=== PATIENT | female | born 1935 | race Caucasian/White ===

== ENCOUNTER 2025-04-15 10:37 | Observation (INO) | payer MEDICARE, SELFPAY ==
[2025-04-15] VITALS (23 sets, daily range): BP systolic 147–196; BP diastolic 51–97; PULSE 59–86; RESP 11–24; TEMP 36.2–36.6; O2SAT 92–100; BMI 26.1
--- NOTE | ~2025-04-15 | XR_ITS ---
EXAMINATION: XR chest 1V portable DATE: 04/15/2025 10:59 INDICATION: Cough and shortness of breath TECHNIQUE: frontal view of the chest was obtained. COMPARISON: None FINDINGS: The lungs are clear with no focal airspace opacities, pulmonary edema, pleural effusion or pneumothor ax. Heart size within normal limits for AP technique. Suture anchors at the right humeral head consis tent with prior rotator cuff repair. IMPRESSION: 1. No acute cardiopulmonary disease. Reviewed, dictated and finalized at location A.
--- NOTE | ~2025-04-15 | CT_ITS ---
EXAMINATION: CTA chest PE protocol DATE: 04/15/2025 12:48 INDICATION: Shortness of breath and 2 days of cough. TECHNIQUE: Computed tomography (CT) pulmonary angiogram of the chest was performed with 100 mL Omnipa que-350 intravenous contrast. Additional 3D reconstructions utilizing coronal maximum intensity proje ction (MIP) were performed. Automated exposure control and iterative reconstruction technique were em ployed. The dose-length product was 279.59 mGy-cm. COMPARISON: None FINDINGS: No pulmonary embolism. Subtle small centrilobular groundglass opacities in the apical and posterior s egments of the right upper lobe and in the lateral segment of the right middle lobe. There is mild di scoid atelectasis at the left lung base of the medial and anterior basilar left lower lobe. Additiona l mild dependent atelectasis in both lungs which accentuates some mild underlying emphysema. There ar e few small calcified nodules in both lungs along with calcified right hilar lymph nodes and scattere d small hepatic and splenic calcific lesions consistent with old granulomatous disease. No pulmonary edema or pleural effusion. Heart size is normal. Atherosclerotic coronary artery calcific location. N o pericardial effusion. Thoracic aorta is normal in caliber with no dissection. No pathologically enl arged thoracic lymphadenopathy. Abdominal wall sutures along the midline of the visualized upper abdo men. Mild right hydronephrosis of indeterminate etiology. Mild to moderate thoracic spondylosis. IMPRESSION: 1. No pulmonary embolism. 2. Patchy lung disease in the right upper and middle lobes consistent with multifocal pneumonia. 3. Mild right hydronephrosis of indeterminate etiology. Correlate with urinalysis and consider furthe r CT imaging of the nonvisualized more caudal abdomen and pelvis. Reviewed, dictated and finalized at location A. IMPRESSION: 1. No pulmonary embolism. 2. Patchy lung disease in the right upper and middle lobes consistent with mult ifocal pneumonia. 3. Mild right hydronephrosis of indeterminate etiology. Correlate with urinalys is and consider further CT imaging of the nonvisualized more caudal abdomen and pelvis.
--- NOTE | 2025-04-15 10:52 | ECG_ITS ---
Test Date: 2025-04-15 11:05:39 Measurements Intervals [place] Rate: 61 P: -4 DE: 128 QRS: -12 QRSD: 94 T: -5 QT: 427 QTc: 431 Interpretive Statements SINUS RHYTHM No previous ECG available for comparison Electronically Signed On 04-15-2025 17:16:18 CDT by Dmitry Leos M.D.
--- NOTE | 2025-04-15 10:53 | ED_ITS ---
HPI - SOB/Dyspnea General Chief Complaint: Shortness of Breath/Dyspnea Stated Complaint: congestion Time Seen by Provider: 04/15/25 10:47 Source: patient Mode of arrival: ambulatory Limitations: no limitations History of Present Illness HPI Narrative: this is an 89-year-old female that recently moved back from [facility] and with her son presents with a 2 day history of shortness of breath with cough congestion with yellow sputum production with no chest pain no nausea vomiting no abdominal pain no fever chills no flank pain no dysuria or hematuria. MD elicited complaint: shortness of breath and cough Onset (ago): day(s) Timing: constant Severity: moderate Exacerbating factors: nothing Relieving factors: nothing Associated symptoms: cough and sputum production Related Data Home Medications ?Medication ?Instructions ?Recorded ?Confirmed ?Last Taken ?Type amlodipine 10 mg-benazepril 20 mg 1 cap PO DAILY 04/15/25 Unknown History capsule atorvastatin 20 mg tablet 20 mg PO DAILY 04/15/25 Unknown History dexlansoprazole 60 mg 60 mg PO DAILY 04/15/25 Unknown History capsule,biphase delayed release diclofenac sodium 1 % topical gel 2 g topical QID 04/15/25 Unknown History folic acid 1 mg tablet 1 mg PO DAILY 04/15/25 Unknown History metoprolol tartrate 100 mg tablet 100 mg PO Q12H 04/15/25 Unknown History nifedipine 30 mg tablet,extended 30 mg PO Q12H 04/15/25 Unknown History release primidone 50 mg tablet 50 mg PO HS 04/15/25 Unknown History venlafaxine 75 mg capsule,extended 75 mg PO DAILY 04/15/25 Unknown History release 24 hr Allergies Allergy/AdvReac Type Severity Reaction Status Date / Time codeine Allergy Unknown Unknown Verified 04/15/25 10:45 Tetanus Vaccines and Toxoid Allergy Unknown Unknown Verified 04/15/25 10:45 Review of Systems 2 Review of Systems: All systems reviewed & are unremarkable except as noted in HPI and below PMFSH Past Medical History Medical History HTN (hypertension) Exam 2 Const: General: healthy appearing, no acute distress and alert Nutritional Appearance: well nourished Orientation/consciousness: patient oriented x3 Limitations: no limitations HENMT: Head: normal to inspection Eyes: Conjunctivae: conjunctivae normal Neck: Neck: normal visual inspection, no lymphadenopathy and no meningeal signs Chest: Chest palpation & inspection: normal inspection of the chest Resp: Effort & Inspection: normal respiratory effort Auscultation: clear to auscultation bilaterally Cardio: Rate: regular rate Rhythm: regular rhythm GI: GI Palp: Yes Soft to palpation Auscultation: normal bowel sounds : General: Yes bladder normal to palpation Skin: General skin exam: normal color Rashes: no rashes Neuro: General: patient oriented x3, moves all extremities, no meningeal signs and no focal motor deficits Extrem: General: normal to inspection, no clubbing, cyanosis or edema and no pedal edema Psych: Mental Status: mental status grossly normal Course Course Emergency Course: patient with some dyspnea had chest x-ray that was unremarkable, D-dimer was mildly elevated at 0.53 CTA showed multi focal pneumonia patient started on ceftriaxone and azithromycin. Patient received a breathing treatment current sats are 97% on room air blood pressure 165 over 98. Patient received 40mg IV Lasix her BNP was 1600 no history of CHF, patient does have a history of hypertension and depression. UA was teen patient current nausea Aczone and azithromycin. His [facility] hospitalist accept the patient for admission. Vital Signs Vital signs: Vital Signs Temperature 36.6 C 04/15/25 10:39 Pulse Rate 68 04/15/25 10:39 Respiratory Rate 20 04/15/25 10:39 Blood Pressure 176/71 H 04/15/25 10:39 Pulse Oximetry 96 04/15/25 10:39 Oxygen Delivery Room Air 04/15/25 10:39 Temperature 36.6 C 04/15/25 10:39 Pulse Rate 64 04/15/25 12:02 Respiratory Rate 18 04/15/25 12:02 Blood Pressure 166/62 H 04/15/25 12:02 Pulse Oximetry 97 04/15/25 12:02 Oxygen Delivery Room Air 04/15/25 10:40 MDM - SOB/Dyspnea Lab Data 04/15/25 11:14 04/15/25 11:14 Labs: Lab Results 04/15/25 04/15/25 Range/Units 10:51 11:14 WBC 6.8 (4.8-10.8) K/mm3 RBC 3.29 L (4.20-5.40) M/mm3 Hgb 10.6 L (11.7-13.8) g/dL Hct 33.7 L (35.0-42.0) % MCV 102.4 H (78.0-102.0) fL MCH 32.2 H (27.0-31.0) pg MCHC 31.5 L (32-36) g/dL RDW 12.3 (11.6-14.4) % Plt Count 240 (150-420) K/mm3 MPV 10.5 (9.2-11.8) fl Immature Gran % (Auto) 0.3 H (0.0-0.0) % Neut % (Auto) 69.8 (50.0-70.0) % Lymph % (Auto) 16.1 L (18.0-42.0) % [place] % (Auto) 12.3 H (2.0-11.0) % Eos % (Auto) 1.2 (1.0-6.0) % Baso % (Auto) 0.3 (0.0-1.0) % Lymph # (Auto) 1.10 (1.10-4.50) K/mm3 [place] # (Auto) 0.84 (0.10-0.90) K/mm3 Eos # (Auto) 0.08 (0.02-0.50) K/mm3 Baso # (Auto) 0.02 (0.00-0.10) K/mm3 Abs Immat Gran (auto) 0.02 H (0.00-0.00) K/mm3 Absolute Neuts (auto) 4.78 (1.70-7.20) K/mm3 Absolute Nucleated RBC 0.00 (0.00-0.00) K/mm3 Nucleated RBC % 0.0 (0-0.0) % PT 10.7 (9.64-11.0) Seconds INR 1.0 APTT 32.9 H (23.9-30.70) Sec D-Dimer 0.53 H* (0.19-0.50) mg/L Sodium 140 (137-145) mmol/L Potassium 3.7 (3.4-5.0) mmol/L Chloride 107 (98-107) mmol/L Carbon Dioxide 27 (22-30) mmol/L Anion Gap 6 (4-12) mmol/L BUN 11 (7-17) mg/dL Creatinine 0.71 (0.7-1.0) mg/dL Estim Creat Clear Calc 44 ml/min Estimated GFR > 60 (59 - ) Glucose 125 H (65-110) mg/dL Calculated Osmolality 290 (285-295) mOsm/kg Lactic Acid 1.5 (0.4-2.0) mmol/L Calcium 8.6 (8.4-10.2) mg/dL Magnesium 2.1 (1.6-2.3) mg/dL Total Bilirubin 0.7 (0.2-1.3) mg/dL AST 34 (14-36) U/L ALT 29 (6-35) U/L Alkaline Phosphatase 64 (38-126) U/L Troponin I < 0.012 (0.000-0.034) ng/mL NT-Pro-B Natriuret Pep 1600 H (19.9-100) pg/mL Total Protein 6.8 (6.3-8.2) g/dL Albumin 4.0 (3.5-5.1) g/dL Influenza A (RT-PCR) Negative (Negative) Influenza B (RT-PCR) Negative (Negative) RSV (RT-PCR) Negative (Negative) SARS-CoV-2 RNA (RT-PCR) Negative (Negative) Critical Care Time Critical Care Time Critical Care Time: No Discharge Plan Discharge Clinical Impression: Pneumonia, Acute exacerbation of CHF (congestive heart failure) Patient Disposition: Acute Care Hospital Condition: Guarded Prognosis Patient Language: Kyrgyz Prescriptions: No Action amlodipine-benazepril 10-20 mg capsule 1 cap PO DAILY atorvastatin 20 mg tablet 20 mg PO DAILY dexlansoprazole 60 mg capsule,biphase delayed releas 60 mg PO DAILY diclofenac sodium 1 % gel 2 g topical QID Rx Instructions: apply to single elbow, wrist or hand; for hand includes palm/fingers/back of hand folic acid 1 mg tablet 1 mg PO DAILY primidone 50 mg tablet 50 mg PO HS venlafaxine 75 mg capsule,extended release 24hr 75 mg PO DAILY metoprolol tartrate 100 mg tablet 100 mg PO Q12H nifedipine 30 mg tablet extended release 30 mg PO Q12H Follow-up/Referrals: UNKNOWN,DOCTOR [Non-Staff] - Time of Disposition: 13:22
--- NOTE | 2025-04-15 11:07 | PC.NURSE ---
Covid culture sent to lab
[2025-04-15 11:28] LABS: Basophils Absolute Auto 0.02 K/mm3 (0.00-0.10); Basophils Percent Auto 0.3 % (0.0-1.0); Eosinophils Absolute Auto 0.08 K/mm3 (0.02-0.50); Eosinophils Percent Auto 1.2 % (1.0-6.0); Hematocrit 33.7 % (35.0-42.0); Hemoglobin 10.6 g/dL (11.7-13.8); Immature Granulocyte Absolute 0.02 K/mm3 (0.00-0.00); Immature Granulocyte Percent A 0.3 % (0.0-0.0); Lymphocytes Percent Auto 16.1 % (18.0-42.0); Mean Corpuscular HGB Conc 31.5 g/dL (32-36); Mean Corpuscular Hemoglobin 32.2 pg (27.0-31.0); Mean Corpuscular Volume 102.4 fL (78.0-102.0); Mean Platelet Volume 10.5 fl (9.2-11.8); Monocytes Absolute Auto 0.84 K/mm3 (0.10-0.90); Monocytes Percent Auto 12.3 % (2.0-11.0); Neutrophils Absolute Auto 4.78 K/mm3 (1.70-7.20); Neutrophils Percent Auto 69.8 % (50.0-70.0); Platelet Count Result 240 K/mm3 (150-420); Red Blood Count 3.29 M/mm3 (4.20-5.40); Red Cell Distribution Width 12.3 % (11.6-14.4); White Blood Count 6.8 K/mm3 (4.8-10.8)
[2025-04-15] MEDS: IPRATROPIUM 0.5 MG/ALBUTEROL SULFATE 2.5 MG AMPUL.NEB 3 ML INHALATION ×2 (11:28→16:34)
--- OUTSIDE RECORDS SUMMARY | 2025-04-15 11:38 | XMS_ITS | Encounter Summary ---
Author Organization [facility] Address [address] [place] [address] Phone Care Team Providers Care Videogame Tester Name Role Phone Susie Jauregui MD Primary Care Provider Encounter Details Date Type Department Care Team (Latest Contact Info) Description 09/28/2020 Transcribe Orders [facility] PERIOP [address] [place] [address] Iam White MD Pre-op testing (Primary Dx) Social History Tobacco Use Types Packs/Day Years Used Date Smoking Tobacco: Never Smokeless Tobacco: Never Alcohol Use Standard Drinks/Week Comments Yes 0 (1 standard drink = 0.6 oz pur e alcohol) 2/year PHQ-2 Answer Date Recorded PHQ-2 Score 0 11/08/2019 Comments No Sex and Gender Information Value Date Recorded Sex Assigned at Not on file Legal Sex Female 11:49 PM CDT Gender Identity Not on file Sexual Orientation Not on file COVID-19 Exposure Response Date Recorded In the last month, have you been in contact with someone who was confirmed or suspected to have Coronavirus / COVID-19? No / Unsure 09/28/2020 8:52 AM EDI PROGRAMMER ANALYST documented as of this encounter Plan of Treatment Not on file documented as of this encounter Results * (ABNORMAL) Urinalysis Microscopic If Indicated (09/29/2020 6:24 AM EDI PROGRAMMER ANALYST) SPECIFIC GRAVITY 1.017 1.003 - 1.035 09/29/2020 6:58 AM EDI PROGRAMMER ANALYST [facility] URINE PH 5.5 5.0 - 8.0 09/29/2020 6:58 AM [facility] WBC ESTERASE 3+(A) Negative 09/29/2020 6:58 AM [facility] NITRITE Positive(A) Negative 09/29/2020 6:58 AM [facility] PROTEIN, RANDOM URINE Trace(A) Negative 09/29/2020 6:58 AM [facility] URINE GLUCOSE, QUAL Negative Negative 09/29/2020 6:58 AM [facility] URINE KETONES Negative Negative 09/29/2020 6:58 AM [facility] UROBILINOGEN <2.0 <2.0 mg/dL 09/29/2020 6:58 AM [facility] URINE BILIRUBIN Negative Negative 0 6:58 AM [facility] URINE BLOOD Trace(A) Negative douglas/ul 09/29/2020 6:58 AM [facility] URINALYSIS COLOR Yellow Yellow 09/29/2020 6:58 AM [facility] URINALYSIS CLARITY Hazy(A) Clear 09/29/2020 6:58 AM [facility] WBC (Urine) 51-150(A) 0-5, Negative /hpf 09/29/2020 6:58 AM [facility] URINE RBC'S 6-10(A) 0-5, Negative, None /hpf 09/29/2020 6:58 AM [facility] BACTERIA, URINE Many(A) None, Absent /hpf 09/29/2020 6:58 AM [facility] URINE MUCOUS Few None, Rare, Few 09/29/2020 6:58 AM [facility] URINE MICRO REQUIRED Yes 09/29/2020 6:58 AM [facility] URINE SQUAMOUS EPITHELIAL CELLS Large amount(A) Negative /HPF 09/29/2020 6:58 AM [facility] URINE HYALINE CASTS 2-5(A) Occasional /LPF 09/29/2020 6:58 AM [facility] DMH RENAL EPI CELLS 09/29/2020 6:58 AM [facility] URINE SPERM 09/29/2020 6:58 AM [facility] URINE TRICHOMONAS 09/29/2020 6:58 AM [facility] URINE YEAST 09/29/2020 6:58 AM EDI PROGRAMMER ANALYST [facility] Urine URINE SPECIMEN COLLECTION, CLEAN CATCH / Unknown Non-Phlebotomy Collection / Unknown 09/29/2020 6:24 AM EDI PROGRAMMER ANALYST 09/29/2020 6:44 AM EDI PROGRAMMER ANALYST Narrative [facility] - 09/29/2020 6:58 AM EDI PROGRAMMER ANALYST Urine culture has been ordered. Iam White MD URINE ORDERABLES Final Resu lt [facility] [address] [place] [address] documented in this encounter Visit Diagnoses Diagnosis Pre-op testing- Primary Preoperative examination, unspecified documented in this encounter Additional Health Concerns Infection Onset Date Last Indicated Resolved Time PUI 05/07/2021 05/07/2021 05/07/2021 9:27 PM CDT Assessment Noted Time PHQ-9 Depression Total Score: 0 09/28/20 20 9:00 AM EDI PROGRAMMER ANALYST documented as of this encounter Care Teams Videogame Tester Relationship Specialty Start Date End Date Susie Jauregui MD [address] [place] [address] PCP - General Geriatric Medicine 08/26/18 documented as of this encounter
--- OUTSIDE RECORDS SUMMARY | 2025-04-15 11:38 | XMS_ITS | Encounter Summary ---
Author Organization [facility] Address [address] [place] [address] Phone Care Team Providers Care Necktie Turner Name Role Phone Susie Jauregui MD Primary Care Provider Encounter Details Date Type Department Care Team (Late st Contact Info) Description 05/15/2021 Lab Requisition [facility] Laboratory Services [address] [place] [address] Justin Carlson MD [address] [facility] [address] [place] [address] Fracture of unspecified part of neck of right femur, initial encounter for closed fracture (HCC) Social History Tobacco Use Types Packs/Day Years Used Date Smoking Tobacco: Never Smokeless Tobacco: Never Alcohol Use Standard Drinks/Week Comments Yes 0 (1 standard drink = 0.6 oz pur e alcohol) 2/year PHQ-2 Answer Date Recorded Total Score - Questions 1-9 0 04/23 Comments No Sex and Gender Information Value Date Recorded Sex Assigned at Not on file Legal Sex Female 11:49 PM CDT Gender Identity Not on file Sexual Orientation Not on file COVID-19 Exposure Response Date Recorded In the last month, have you been in contact with someone who was confirmed or suspected to have Coronavirus / COVID-19? No / Unsure 05/10/2021 8:04 AM CDT documented as of this encounter Plan of Treatment Not on file documented as of this encounter Procedures Procedure Name Priority Date/Time Associated Diagnosis Comments CBC WITH AUTO DIFFERENTIAL Routine 05/15/2021 6:20 AM CDT Fracture of unspecified part of neck of right femur, initial encounter for closed fracture (HCC) COMPLETE BLOOD COUNT (CBC) WITH DIFF Routine 05/15/2021 6:20 AM CDT Fracture of unspecified part of neck of right femur, initial encounter for closed fracture (HCC) BASIC METABOLIC PANEL W/ CALCIUM TOTAL Routine 05/15/2021 6:20 AM CDT Fracture of unspecified part of neck of right femur, initial encounter for closed fracture (HCC) ALBUMIN Routine 05/15/2021 6:20 AM CDT Fracture of unspecified part of neck of right femur, initial encounter for closed fracture (HCC) ADJUSTED CALCIUM*[facility] Routine 05/15/2021 6:20 AM CDT Fracture of unspecified part of neck of right femur, initial encounter for closed fracture (HCC) documented in this encounter Results * (ABNORMAL) ALBUMIN (05/15/2021 6:20 AM CDT) ALBUMIN 2.7(L) 3.4 - 4.8 g/dL 05/15/2021 8:31 AM CDT [facility] Blood Venipuncture / Unknown 05/15/2021 6:20 AM CDT 05/15/2021 7:11 AM CDT us Justin Carlson MD CHEMISTRY ORDERABLES Final Re sult [place] [id number] [place] [address] * ADJUSTED CALCIUM*[facility] (05/15/2021 6:20 AM CDT) ADJUSTED CALCIUM 9.2 8.8 - 10.0 mg/dL 05/15/2021 8:32 AM CDT [facility] Blood Venipuncture / Unknown 05/15/2021 6:20 AM CDT 05/15/2021 7:11 AM CDT us Justin Carlson MD CHEMISTRY ORDERABLES Final Re sult [facility] [address] [place] [address] * (ABNORMAL) CBC WITH AUTO DIFFERENTIAL (05/15/2021 6:20 AM CDT) WBC 6.12 3.90 - 11.00 10(3)/mcL 05/15/2021 8:[address] [facility] RBC 3.04(L) 3.80 - 5.20 10(6)/mcL 05/15/2021 8:[address] [facility] HEMOGLOBIN (HGB) 9.4(L) 11.7 - 16.0 g/dL 05/15/2021 8:[address] [facility] HEMATOCRIT (HCT) 30.2(L) 34.9 - 46.9 % 05/15/2021 8:[address] [facility] MCV 99.3 80.0 - 100.0 fL 05/15/2021 8:[address] [facility] MCH 30.9 26.5 - 33.9 pg 05/15/2021 8:[address] [facility] MCHC 31.1(L) 31.5 - 36.0 g/dL 05/15/2021 8:[address] [facility] PLATELET COUNT 362 140 - 445 10(3)/mcL 05/15/2021 8:[address] [facility] MPV 9.7 >=0.0 fL 05/15/2021 8:[address] [facility] RDW 13.9 12.0 - 15.0 % 05/15/2021 8:[address] [facility] NEUTROPHILS 65.7 % 05/15/2021 8:[address] [facility] LYMPHOCYTES 20.4 % 05/15/2021 8:[address] [facility] MONOCYTES 10.5 % 05/15/2021 8:[address] [facility] EOSINOPHILS 1.3 % 05/15/2021 8:[address] [facility] IMMATURE GRANULOCYTE % 1.1 % 05/15/2021 8:[address] [facility] BASOPHILS 1.0 % 05/15/2021 8:[address] [facility] ABSOLUTE NEUTROPHILS 4.02 1.40 - 7.30 10(3)/[facility] 05/15/2021 8:[address] [facility] ABSOLUTE LYMPHOCYTES 1.25(L) 1.30 - 2.90 10(3)/[facility] 05/15/2021 8:[address] [facility] ABSOLUTE MONOCYTES 0.64 0.10 - 0.80 10(3)/[facility] 05/15/2021 8:[address] [facility] ABSOLUTE EOSINOPHIL 0.08 0.00 - 0.30 10(3)/[facility] 05/15/2021 8:[address] [facility] ABSOLUTE BASOPHILS 0.06 0.00 - 0.10 10(3)/[facility] 05/15/2021 8:[address] [facility] ABSOLUTE IMMATURE GRANULOCYTE 0.07 0.00 - 0.10 10 (3) mcL. 05/15/2021 8:[address] [facility] NRBC PER 100 WBC 0.0 0.0 - 0.0 % 05/15/2021 8:[address] [facility] ABSOLUTE NRBC 0.00 10 (3) mcL. 05/15/2021 8:[address] [facility] Blood Venipuncture / Unknown 05/15/2021 6:20 AM CDT 05/15/2021 7:11 AM CDT us Justin Carlson MD HEMATOLOGY ORDERABLES Final R esult [facility] [address] [place] [address] * (ABNORMAL) BASIC METABOLIC PANEL W/ CALCIUM TOTAL (05/15/2021 6:20 AM CDT) SODIUM 140 133 - 145 mmol/L 05/15/2021 8:[address] [facility] POTASSIUM 4.0 3.5 - 5.1 mmol/L 05/15/2021 8:[address] [facility] CHLORIDE 105 96 - 108 mmol/L 05/15/2021 8:[address] [facility] CO2, VENOUS 29 21 - 32 mmol/L 05/15/2021 8:[address] [facility] ANION GAP 10.0 10.0 - 20.0 mmol/L 05/15/2021 8:[address] [facility] GLUCOSE 91 83 - 110 mg/dL 05/15/2021 8:[address] [facility] BUN 11 6 - 19 mg/dL 05/15/2021 8:[address] [facility] CREATININE, BLOOD 0.60 0.40 - 1.10 mg/dL 05/15/2021 8:[address] [facility] BUN/CREATININE RATIO 18 12 - 20 ratio 05/15/2021 8:[address] [facility] CALCIUM 8.2(L) 8.8 - 10.0 mg/dL 05/15/2021 8:[address] [facility] Comment:Calcium low. Correct ed calcium to follow. Blood Venipuncture / Unknown 05/15/2021 6:20 AM CDT 05/15/2021 7:11 AM CDT us Justin Carlson MD CHEMISTRY ORDERABLES Final Re sult [facility] [address] [place] [id number] documented in this encounter Visit Diagnoses Diagnosis Fracture of unspecified part of neck of right femur, initial encounter for closed fracture documented in this encounter Additional Health Concerns Assessment Noted Time PHQ-9 Depression Total Score: 0 05/08/20 21 1:15 AM CDT documented as of this encounter Care Teams Necktie Turner Relationship Specialty Start Date End Date Susie Jauregui MD [address] [place] [address] PCP - General Geriatric Medicine 08/26/18 documented as of this encounter
--- OUTSIDE RECORDS SUMMARY | 2025-04-15 11:38 | XMS_ITS | Encounter Summary ---
Author Organization [facility] Address [address] [place] [address] Phone Care Team Providers Care Assembler Fishing Floats Name Role Phone Susie Jauregui MD Primary Care Provider Encounter Details Date Type Department Care Team (Late st Contact Info) Description 06/18/[address] [facility] Laboratory Services [address] [place] [address] Abelino David MD [address] [place], [place] [id number] Essential (primary) hypertension; Urinary tract infection, site not specified Social History Tobacco Use Types Packs/Day Years Used Date Smoking Tobacco: Never Smokeless Tobacco: Never Alcohol Use Standard Drinks/Week Comments Yes 0 (1 standard drink = 0.6 oz pur e alcohol) 2/year PHQ-2 Answer Date Recorded Total Score - Questions 1-9 0 05/23 Comments No Sex and Gender Information Value Date Recorded Sex Assigned at Not on file Legal Sex Female 11:49 PM CDT Gender Identity Not on file Sexual Orientation Not on file COVID-19 Exposure Response Date Recorded In the last month, have you been in contact with someone who was confirmed or suspected to have Coronavirus / COVID-19? No / Unsure 06/05/2021 9:07 AM CDT documented as of this encounter Plan of Treatment Not on file documented as of this encounter Procedures Procedure Name Priority Date/Time Associated Diagnosis Comments CRP, DMH/SHS Routine 06/18/2021 6:41 AM CDT Essential (primary) hypertension Urinary tract infection, site not specified CBC WITH AUTO DIFFERENTIAL Routine 06/18/2021 6:41 AM CDT Essential (primary) hypertension Urinary tract infection, site not specified CMP (COMPREHENSIVE METABOLIC PANEL) Routine 06/18/2021 6:41 AM CDT Essential (primary) hypertension Urinary tract infection, site not specified COMPLETE BLOOD COUNT (CBC) WITH DIFF Routine 06/18/2021 6:41 AM CDT Essential (primary) hypertension Urinary tract infection, site not specified documented in this encounter Results * (ABNORMAL) CBC WITH AUTO DIFFERENTIAL (06/18/2021 6:41 AM CDT) WBC 4.46 3.90 - 11.00 10(3)/mcL 06/18/2021 9:09 AM [facility] RBC 3.32(L) 3.80 - 5.20 10(6)/mcL 06/18/2021 9:09 AM [facility] HEMOGLOBIN (HGB) 10.0(L) 11.7 - 16.0 g/dL 06/18/2021 9:09 AM [facility] HEMATOCRIT (HCT) 32.9(L) 34.9 - 46.9 % 06/18/2021 9:09 AM [facility] MCV 99.1 80.0 - 100.0 fL 06/18/2021 9:09 AM [facility] MCH 30.1 26.5 - 33.9 pg 06/18/2021 9:09 AM [facility] MCHC 30.4(L) 31.5 - 36.0 g/dL 06/18/2021 9:09 AM [facility] PLATELET COUNT 311 140 - 445 10(3)/mcL 06/18/2021 9:09 AM [facility] MPV 9.5 >=0.0 fL 06/18/2021 9:09 AM [facility] RDW 14.2 12.0 - 15.0 % 06/18/2021 9:09 AM [facility] NEUTROPHILS 52.7 % 06/18/2021 9:09 AM [facility] LYMPHOCYTES 34.1 % 06/18/2021 9:09 AM [facility] MONOCYTES 10.8 % 06/18/2021 9:09 AM [facility] EOSINOPHILS 1.3 % 06/18/2021 9:09 AM [facility] IMMATURE GRANULOCYTE % 0.2 % 06/18/2021 9:09 AM [facility] BASOPHILS 0.9 % 06/18/2021 9:09 AM [facility] ABSOLUTE NEUTROPHILS 2.35 1.40 - 7.30 10(3)/[facility] 06/18/2021 9:09 AM [facility] ABSOLUTE LYMPHOCYTES 1.52 1.30 - 2.90 10(3)/mcL 06/18/2021 9:09 AM [facility] ABSOLUTE MONOCYTES 0.48 0.10 - 0.80 10(3)/[facility] 06/18/2021 9:09 AM [facility] ABSOLUTE EOSINOPHIL 0.06 0.00 - 0.30 10(3)/[facility] 06/18/2021 9:09 AM [facility] ABSOLUTE BASOPHILS 0.04 0.00 - 0.10 10(3)/mcL 06/18/2021 9:09 AM [facility] ABSOLUTE IMMATURE GRANULOCYTE 0.01 0.00 - 0.10 10 (3) mcL. 06/18/2021 9:09 AM [facility] NRBC PER 100 WBC 0.0 0.0 - 0.0 % 06/18/2021 9:09 AM [facility] ABSOLUTE NRBC 0.00 10 (3) mcL. 06/18/2021 9:09 AM [facility] Blood Venipuncture / Unknown 06/18/2021 6:41 AM CDT 06/18/2021 8:04 AM CDT us Abelino David MD HEMATOLOGY ORDERABLES Final Re sult [facility] [address] [place] [address] * (ABNORMAL) CMP (COMPREHENSIVE METABOLIC PANEL) (06/18/2021 6:41 AM CDT) SODIUM 142 133 - 145 mmol/L 06/18/2021 9:25 AM [facility] POTASSIUM 4.1 3.5 - 5.1 mmol/L 06/18/2021 9:25 AM [facility] CHLORIDE 106 96 - 108 mmol/L 06/18/2021 9:25 AM [facility] CO2, VENOUS 30 21 - 32 mmol/L 06/18/2021 9:25 AM [facility] ANION GAP 10.1 10.0 - 20.0 mmol/L 06/18/2021 9:25 AM [facility] GLUCOSE 97 83 - 110 mg/dL 06/18/2021 9:25 AM [facility] BUN 11 6 - 19 mg/dL 06/18/2021 9:25 AM [facility] CREATININE, BLOOD 0.70 0.40 - 1.10 mg/dL 06/18/2021 9:25 AM [facility] BUN/CREATININE RATIO 16 12 - 20 ratio 06/18/2021 9:25 AM [facility] TOTAL PROTEIN 6.0 6.0 - 8.2 g/dL 06/18/2021 9:25 AM [facility] ALBUMIN 3.3(L) 3.4 - 4.8 g/dL 06/18/2021 9:25 AM [facility] CALCIUM 8.8 8.8 - 10.0 mg/dL 06/18/2021 9:25 AM [facility] T BILI 0.3 0.0 - 1.0 mg/dL 06/18/2021 9:25 AM [facility] SGOT (AST) 16 0 - 37 U/L 06/18/2021 9:25 AM [facility] SGPT (ALT) 22 12 - 45 U/L 06/18/2021 9:25 AM [facility] ALKALINE PHOSPHATASE 64 39 - 117 U/L 06/18/2021 9:25 AM [facility] GFR, EST. NONAFRICAN >60 06/18/2021 9:25 AM [facility] Comment: Reference interval for MDRD GFR: GFR >=60: Satisfactory kidney function GFR <60: Chronic kidney disease GFR <15: Kidney failure Estimated GFR may be less reliable in patients >70yr, women, patients with serious comorbid conditions, or patients with extremes of body size, muscle mass, or nutritional status. Revised 02/16/08 (National Kidney Disease Education Program) GFR, EST. >60 >=60 021 9:25 AM [facility] Comment: Reference interval for MDRD GFR: GFR >=60: Satisfactory kidney function GFR <60: Chronic kidney disease GFR <15: Kidney failure Estimated GFR may be less reliable in patients >70yr, women, patients with serious comorbid conditions, or patients with extremes of body size, muscle mass, or nutritional status. Revised 02/16/08 (National Kidney Disease Education Program) Blood Venipuncture / Unknown 06/18/2021 6:41 AM CDT 06/18/2021 8:04 AM CDT [facility] - 06/18/2021 9:25 AM T Venipuncture should occur prior to sulfasalazine and/or sulfapyridine administration due to the potential for falsely depressed results for ALT and AST. Glucose can be falsely depressed after administration of sulfasalazine, and falsely elevated with administration of sulfapyridine. us Abelino David MD CHEMISTRY ORDERABLES Final Res ult [facility] [address] [place] [address] * CRP, DMH (06/18/2021 6:41 AM CDT) C-REACITVE PROTEIN <2.9 0.0 - 5.0 mg/L 06/18/2021 9:25 AM [facility] Blood Venipuncture / Unknown 06/18/2021 6:41 AM CDT 06/18/2021 8:04 AM CDT us Abelino David MD CHEMISTRY ORDERABLES Final Res ult [facility] [address] [place] [address] documented in this encounter Visit Diagnoses Diagnosis Essential (primary) hypertension Unspecified essential hypertension Urinary tract infection, site not specified documented in this encounter Additional Health Concerns Assessment Noted Time PHQ-9 Depression Total Score: 0 06/05/20 21 9:00 AM CDT documented as of this encounter Care Teams Assembler Fishing Floats Relationship Specialty Start Date End Date Susie Jauregui MD [address] [place] [address] PCP - General Geriatric Medicine 08/26/18 documented as of this encounter
--- OUTSIDE RECORDS SUMMARY | 2025-04-15 11:38 | XMS_ITS | Clinical Summary ---
Author Organization [facility] Address [address] [place] [address] Phone Care Team Providers Care System Support Developer Name Role Phone Susie Jauregui MD Primary Care Provider Allergies Active Allergy Reactions Criticality Noted Date Comments Codeine Vomiting Medium 09/01/2018 Tetanus Toxoid Nausea Medium 09/03/2018 Medications Magnesium Oxide 400 MG Capsule Take 1 Cap by mouth daily. Active alendronate (FOSAMAX) 35 MG TabletIndicatio ns:Osteoporosis Take 70 mg by mouth every 7 days. Active amLODIPine-tulio zepril (LOTREL) 5-10 MG Capsule Take 1 Cap by mouth 2 times daily. Active atorvastatin (LIPITOR) 20 MG Tablet Take 20 mg by mouth daily. Active Calcium Carbonate-Vitam in D (CALCIUM 500 + D PO) Take 1 Tab by mouth 2 times daily. Active Dexlansoprazole 60 MG CAPSULE DELAYED RELEASE Take 1 Cap by mouth daily (with breakfast). Active Multiple Vitamins-Minera ls (MULTIVITAMIN PO) Take 1 Tab by mouth daily. Active venlafaxine (EFFEXOR-XR) 75 MG CAPSULE SR 24 HR Take 75 mg by mouth daily. Active primidone (MYSOLINE) 50 MG Tablet 3 tabs at hs 0 Active Diclofenac Sodium (VOLTAREN) 1 % Gel Apply 4 g 4 times daily. 9 Active metoprolol tartrate (LOPRESSOR) 50 MG Tablet Take 75 mg by mouth 2 times daily. 1 Active sulfaSALAzine (AZULFIDINE) 500 MG Tablet Take 1,500 mg by mouth 2 times daily. Active aspirin 81 MG Chewable Tablet Take 1 Tablet by mouth 2 times daily. Continue twice a day for 35 days for blood clot prevention 0 Active Additional Information Patient taking differently:81 mg OralDAILY, (No instructions reported), Reported on 02/21/2022 NIFEdipine CR (PROCARDIA-XL) 30 MG TABLET SR 24 HR Take 30 mg by mouth in the morning and at bedtime. 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 Frequent falls 07/24/2021 Closed fracture of right hip with routine healin g 05/08/2021 Left knee pain 09/28/2020 Closed displaced comminuted fracture of left pat eren 09/28/2020 De Quervain's tenosynovitis 08/30/2018 Family History Medical History Relation Name Comments No Known Problems Father Heart Attack Mother Relation Name Status Comments Father Mother Social History Tobacco Use Types Packs/Day Years Used Date Smoking Tobacco: Never Smokeless Tobacco: Never Tobacco Cessation:Counseling Given: No Alcohol Use Standard Drinks/Week Comments Yes 0 (1 standard drink = 0.6 oz pur e alcohol) 2/year PHQ-2 Answer Date Recorded Total Score - Questions 1-9 0 11/2021 Comments No Sex and Gender Information Value Date Recorded Sex Assigned at Not on file Legal Sex Female 11:49 PM CDT Gender Identity Not on file Sexual Orientation Not on file Last Filed Vital Signs Vital Sign Reading Time Taken Comments Blood Pressure 169/74 11/21/2022 12:50 PM DIRECTOR PROCESS ENGINEERING Pulse 73 11/21/2022 12:50 PM DIRECTOR PROCESS ENGINEERING Temperature 36.3 C (97.3 F) 11/21/2022 12:50 PM DIRECTOR PROCESS ENGINEERING Respiratory Rate 16 11/21/2022 12:50 PM DIRECTOR PROCESS ENGINEERING Oxygen Saturation 93% 11/21/2022 12:50 PM DIRECTOR PROCESS ENGINEERING Inhaled Oxygen Concentration - - Weight 61.2 kg (135 lb) 11/21/2022 9:00 AM DIRECTOR PROCESS ENGINEERING Height 157.5 cm (5' 2) 11/21/2022 9:00 AM DIRECTOR PROCESS ENGINEERING Body Mass Index 24.69 11/21/2022 9:00 AM DIRECTOR PROCESS ENGINEERING Plan of Treatment Health Maintenance Due Date Last Done Comments DEXA Bone Density 1935 Hepatitis C Virus (HCV) Screening 1935 TdaP Immunization 1935 Respiratory Syncytial Virus (RSV) Immunization (Adult) (1 - 1-dose 75+ series) 2012 Influenza Immunization (#1) 07/24/202411/23, 08/23/2022, 09/03/2020, Additional history exists SARS-COV-2 Immunization ( season) 2024 01/07/2022, 01/07/2022, 03/06/2021, Additional history exists Zoster Immunization Completed 09/11/2018, 05/11/2018, 10/22/2012 Pneumococcal Immunization (50+ years) Completed 09/03/2020, 08/22/2015, 06/10/2004 Pneumococcal Immunization Combined Discontinued 09/03/2020, 08/22/2015, 06/10/2004 Hepatitis B Immunization Aged Out No longer eligible based on patient's age to complete this topic Meningococcal Immunization (ACWY) Aged Out No longer eligible based on patient's age to complete this topic Rotavirus Immunization Aged Out No lo nger eligible based on patient's age to complete this topic Medical Devices Implanted Type Area Night Auditor Device Identifier Shelf Expiration Date Model / Serial / Lot Cement Biomet - [id number] Implanted:Qty: 1 on 05/08/2021 by Iam White MD at [facility] IMPLANT Right: Hip [employer] 07/23/2025 [id number] / / [id number] Cement [employer] - [id number] Implanted:Qty: 1 on 05/08/2021 by Iam White MD at [facility] IMPLANT Right: Hip [employer] 08/22/2025 [id number] / / [id number] [facility] Distal Spacer [id number] - [id number] Implanted:Qty: 1 on 05/08/2021 by Iam White MD at [facility] IMPLANT Right: Hip SEBASTIAN VALERIA 04/17/2026 [id number] / / [id number] Univ Cement Restrict [id number] - [id number] Implanted:Qty: 1 on 05/08/2021 by Iam White MD at [facility] IMPLANT Right: Hip [employer] VALER[employer] 01/11/2026 [id number] / / [id number] Uhr Bipolar [id number] - [id number] Implanted:Qty: 1 on 05/08/2021 by Iam White MD at [facility] IMPLANT Right: Hip SEBASTIAN VALERIA 01/28/2026 [id number] / / [id number] 1.8mm Threaded Im Nail Implanted:Qty: 1 on 11/21/2022 by Clarence Cadet DO at [facility] IMPLANT Right: Hand [employer] IMN1.8-35T / / UNKNOWN 1.8mm Threaded Im Nail Implanted:Qty: 1 on 11/21/2022 by Clarence Cadet DO at [facility] IMPLANT Right: Hand [employer] IMN1.8-30T / / UNKNOWN 2.1mm Threaded Im Nail Implanted:Qty: 1 on 11/21/2022 by Clarence Cadet DO at [facility] IMPLANT Right: Hand [employer] IMN2.1-40T / / UNKNOWN Accolade C 127 Degree Cemented Hip Stem Implanted:Qty: 1 on 05/08/2021 by Iam White MD at [facility] Right: Hip 10/21/2023 [id number] / / [id number] [place] [employer] V40 Femoral Head Implanted:Qty: 1 on 05/08/2021 by Iam White MD at [facility] Right: Hip 03/11/2026 [id number] / / [id number] Explanted Type Area Night Auditor Device Identifier Shelf Expiration Date Model / Serial / Lot Cristopher Arnold Threaded - [id number] Explanted:Qty: 1 on 05/08/2021 by Iam White MD at [facility] IMPLANT Right: Hip [employer] [id number] / / UNK 0.9mm K-Wire Explanted:Qty: 2 on 11/21/2022 at [facility] IMPLANT Right: Hand [employer] WIRE-0.9/120 / / UNKNOWN Insurance MEDICARE [facility] [employer] [facility] [place] [id number] [employer] GENERIC Care Teams System Support Developer Relationship Specialty Start Date End Date Susie Jauregui MD [address] [place] [address] PCP - General Geriatric Medicine 08/26/18
[2025-04-15 11:39] LABS: Alanine Aminotransferase 29 U/L (6-35); Alkaline Phosphatase 64 U/L (38-126); Anion Gap 6 mmol/L (4-12); Aspartate Amino Transferase 34 U/L (14-36); Bilirubin,Total 0.7 mg/dL (0.2-1.3); Blood Urea Nitrogen 11 mg/dL (7-17); Calcium 8.6 mg/dL (8.4-10.2); Carbon Dioxide 27 mmol/L (22-30); Chloride 107 mmol/L (98-107); Estimated CRCL calculation 44 ml/min; Estimated Glomerular Filt Rate > 60; Glucose 125 mg/dL (65-110); Lactic Acid Reflex 1.5 mmol/L (0.4-2.0); Magnesium 2.1 mg/dL (1.6-2.3); Osmolality Calculated 290 mOsm/kg (285-295); Potassium 3.7 mmol/L (3.4-5.0); Sodium 140 mmol/L (137-145); Total Protein 6.8 g/dL (6.3-8.2)
[2025-04-15 11:51] LABS: NT Pro B Type Natriuretic Pept 1600 pg/mL (19.9-100); Troponin I < 0.012 ng/mL (0.000-0.034)
[2025-04-15 12:05] LABS: Influenza A QL RT-PCR Negative (Negative); Influenza B QL RT-PCR Negative (Negative); RSV RNA, RT-PCR Negative (Negative); SARS-CoV-2 RNA PCR Negative (Negative)
[2025-04-15 12:05] LABS: Prothrombin Time 10.7 Seconds (9.64-11.0)
[2025-04-15 12:14] LABS: Partial Thromboplastin Time 32.9 Sec (23.9-30.70)
[2025-04-15 12:20] LABS: D Dimer 0.53 mg/L (0.19-0.50)
[2025-04-15] MEDS: FUROSEMIDE INJ 40 MG/4 ML VIAL IV PUSH (12:21)
[2025-04-15 13:31] LABS: Add Urine Microscopic? NO; Appearance Urine Clear (Clear); Bilirubin Urine Negative (Negative); Blood Urine Negative (Negative); Color Urine Light Yellow (Yellow); Glucose Urine UA Negative (Negative); Ketones Urine Negative (Negative); Leukocyte Esterase Ur Negative LEU/UL (Negative); Nitrate Urine Negative (Negative); Protein Urine Negative (Negative); Specific Grav Ur <= 1.005 (1.010-1.020); Urobilinogen Urine 0.2 mg/dL (0.2-1.0); pH Urine 6.5 (5.0-8.0)
--- NOTE | 2025-04-15 13:31 | PC.NURSE ---
Pt and grandson POC discussed for admit. Pt is weak on her feet w/ movement. She will be 23 hr obs admit to Rm 208, spoke w/ 2nd charge DAVE Mcnamara.
[2025-04-15] MEDS: AZITHROMYCIN 500 MG/NS 250 ML 500 MG/250 ML BAG 250 MG IVPB (14:40)
--- NOTE | 2025-04-15 15:20 | PC.NURSE ---
Patient arrived from ED on stretcher. Patient able to transfer from stretcher to bed with 2 assist. Patient admitted to room 208 for observation. Patient and family educated on use of call light, bed controls, visiting hours, living will preparation, use of our rapid response system and safety precautions. Patient and family voiced understanding. Blue folder given to patient and family.
--- NOTE | 2025-04-15 18:11 | PC.NURSE ---
Nurse gave patient a PRN nebulizer treatment and patient did not tolerate it well. Patient was anxious, shaky and felt awful after treatment. Nurse encouraged patient to eat dinner and drink plenty of water. Patient did those things and is feeling much better now.
[2025-04-15] MEDS: METOPROLOL TARTRATE 50 MG TAB 100 MG PO (20:33)
[2025-04-15] MEDS: PRIMIDONE 50 MG TABLET PO (20:37)
[2025-04-15] MEDS: guaiFENesin 12 HR 600 MG TABCR 1200 MG PO (20:38)
[2025-04-15] MEDS: DICLOFENAC SODIUM 1% 100 GM GEL (*BKC) TOPICAL (20:38)
[2025-04-16] VITALS: BP 145/59; PULSE 78; RESP 18; TEMP 37.1; O2SAT 93
[2025-04-16 08:00] VITALS: BP 188/80; PULSE 72; RESP 16; TEMP 36.1; O2SAT 90
[2025-04-16] MEDS: ENOXAPARIN 40 MG/0.4 ML SYRINGE SUB-Q (08:13)
[2025-04-16] MEDS: VENLAFAXINE HCL XR 75 MG CAP.ER.24H PO (08:14)
[2025-04-16] MEDS: ATORVASTATIN 10 MG TABLET 20 MG PO (08:14)
[2025-04-16] MEDS: AZITHROMYCIN 250 MG TABLET 500 MG PO (08:15)
[2025-04-16 08:16] VITALS: PULSE 72
[2025-04-16] MEDS: MAGNESIUM OXIDE 400 MG TABLET PO (08:16)
[2025-04-16] MEDS: METOPROLOL TARTRATE 50 MG TAB 100 MG PO ×2 (08:16→20:55)
[2025-04-16] MEDS: FOLIC ACID 1 MG TABLET PO (08:17)
[2025-04-16] MEDS: guaiFENesin 12 HR 600 MG TABCR 1200 MG PO ×2 (08:17→20:59)
[2025-04-16 08:43] LABS: Basophils Absolute Auto 0.02 K/mm3 (0.00-0.10); Basophils Percent Auto 0.3 % (0.0-1.0); Eosinophils Absolute Auto 0.12 K/mm3 (0.02-0.50); Eosinophils Percent Auto 1.9 % (1.0-6.0); Hematocrit 37.4 % (35.0-42.0); Hemoglobin 11.7 g/dL (11.7-13.8); Immature Granulocyte Absolute 0.02 K/mm3 (0.00-0.00); Immature Granulocyte Percent A 0.3 % (0.0-0.0); Lymphocytes Absolute Auto 1.52 K/mm3 (1.10-4.50); Lymphocytes Percent Auto 23.9 % (18.0-42.0); Mean Corpuscular HGB Conc 31.3 g/dL (32-36); Mean Corpuscular Hemoglobin 32.1 pg (27.0-31.0); Mean Corpuscular Volume 102.5 fL (78.0-102.0); Mean Platelet Volume 10.3 fl (9.2-11.8); Monocytes Absolute Auto 0.59 K/mm3 (0.10-0.90); Monocytes Percent Auto 9.3 % (2.0-11.0); Neutrophils Absolute Auto 4.09 K/mm3 (1.70-7.20); Neutrophils Percent Auto 64.3 % (50.0-70.0); Platelet Count Result 291 K/mm3 (150-420); Red Blood Count 3.65 M/mm3 (4.20-5.40); Red Cell Distribution Width 12.3 % (11.6-14.4); White Blood Count 6.4 K/mm3 (4.8-10.8)
[2025-04-16 09:00] LABS: Alanine Aminotransferase 29 U/L (6-35); Albumin Level 4.3 g/dL (3.5-5.1); Alkaline Phosphatase 73 U/L (38-126); Anion Gap 5 mmol/L (4-12); Aspartate Amino Transferase 33 U/L (14-36); Bilirubin,Total 0.6 mg/dL (0.2-1.3); Blood Urea Nitrogen 9 mg/dL (7-17); Calcium 8.7 mg/dL (8.4-10.2); Carbon Dioxide 32 mmol/L (22-30); Chloride 103 mmol/L (98-107); Estimated CRCL calculation 40 ml/min; Estimated Glomerular Filt Rate > 60; Glucose 91 mg/dL (65-110); Magnesium 2.3 mg/dL (1.6-2.3); Osmolality Calculated 288 mOsm/kg (285-295); Sodium 140 mmol/L (137-145); Total Protein 7.4 g/dL (6.3-8.2)
[2025-04-16 09:01] LABS: Potassium 3.6 mmol/L (3.4-5.0)
--- NOTE | 2025-04-16 09:32 | PC.NURSE ---
Called to inform [place], Grandchild of the need to bring in Sulfasalazine to facility. No answer and unable to leave VM.
[2025-04-16] MEDS: NIFEdipine 30 MG TAB.ER.24 PO ×2 (09:33→20:59)
--- NOTE | 2025-04-16 11:35 | P.HP_ITS ---
H&P: HPI History of Present Illness Date/Time: 04/16/25 11:35 Chief Complaint: Cough/Congestion Narrative: Patient is an 89-year-old female who presented to the emergency department with complaints of ongoing cough congestion with mild shortness of breath for the past 2 days. patient recently moved back in with her son from [facility] and began to have worsening cough congestion and she further notice some green sputum production. Patient reports past medical history of hypertension, HLD, OA. in the emergency department patient had mildly elevated D-dimer and BNP is elevated at 1600 but no previous history of CHF at that time ED did give single dose of IV Lasix and patient was sent for CTA to rule out PE CTA was negative for PE however did show patchy lung disease in the right upper and middle lobes consistent with multifocal pneumonia. patient did have normal WBC and labs for otherwise unremarkable vital stable. Patient was seen this following day reported feeling better remained on room air, denied shortness breath or chest pain but still had significant productive cough. patient denied any nausea vomiting fever chills. Review of Systems Review of Systems: All systems reviewed & are unremarkable except as noted in HPI and below PMFSH Past Medical History Medical History HTN (hypertension) Social History Social History Smoking status: Never smoker Second hand tobacco smoke exposure: Yes Alcohol intake: never Substance use: never Substance use type: does not use Do You Feel Safe in your Home?: Yes Lack of Transportation: No Lack of Food: Never True Current Housing: I Have Housing Concerned About Future Housing: No Difficulty Paying Gas/Electric Bills: No Difficulty Paying for Meds: No Currently Unemployed: No Education: High School Diploma/GED Difficulty w/ Childcare or Family Care: No Spiritual care concerns: No Meds Home Medications and Allergies Home Medications ?Medication ?Instructions ?Recorded ?Confirmed ?Type amlodipine 10 mg-benazepril 20 mg 1 cap PO DAILY 04/15/25 04/15/25 History capsule atorvastatin 20 mg tablet 20 mg PO DAILY 04/15/25 04/15/25 History dexlansoprazole 60 mg 60 mg PO DAILY 04/15/25 04/15/25 History capsule,biphase delayed release diclofenac sodium 1 % topical gel 2 g topical QID 04/15/25 04/15/25 History folic acid 1 mg tablet 1 mg PO DAILY 04/15/25 04/15/25 History magnesium oxide 250 mg PO DAILY 04/15/25 04/15/25 History metoprolol tartrate 100 mg tablet 100 mg PO Q12H 04/15/25 04/15/25 History nifedipine 30 mg tablet,extended 30 mg PO Q12H 04/15/25 04/15/25 History release primidone 50 mg tablet 50 mg PO HS 04/15/25 04/15/25 History sulfasalazine 500 mg tablet 1,500 mg PO BID 04/15/25 04/15/25 History venlafaxine 75 mg capsule,extended 75 mg PO DAILY 04/15/25 04/15/25 History release 24 hr Allergies Allergy/AdvReac Type Severity Reaction Status Date / Time codeine Allergy Unknown Unknown Verified 04/15/25 10:45 Tetanus Vaccines and Toxoid Allergy Unknown Unknown Verified 04/15/25 10:45 Vital Signs Vital Signs - 24 hr 04/15/25 11:45 04/15/25 11:45 04/15/25 12:00 Temperature Pulse Rate 64 59 L 62 Respiratory Rate 20 15 12 Blood Pressure Pulse Oximetry 95 92 100 Oxygen Delivery Oxygen Flow Rate 04/15/25 12:02 04/15/25 14:04 04/15/25 14:14 Temperature 97.9 F Pulse Rate 64 82 61 Respiratory Rate 18 20 16 Blood Pressure 166/62 H 168/78 H Pulse Oximetry 97 95 94 Oxygen Delivery Room Air Room Air Oxygen Flow Rate 04/15/25 15:16 04/15/25 16:25 04/15/25 16:34 Temperature 97.1 F L 97.1 F L Pulse Rate 61 70 70 Respiratory Rate 16 18 18 Blood Pressure 162/61 H 180/51 H Pulse Oximetry 94 94 94 Oxygen Delivery Room Air Room Air Oxygen Flow Rate 0 04/15/25 17:13 04/15/25 20:00 04/15/25 20:33 Temperature Pulse Rate 86 67 73 Respiratory Rate 20 20 Blood Pressure Pulse Oximetry 98 98 Oxygen Delivery Room Air Oxygen Flow Rate 0 04/16/25 00:00 04/16/25 08:00 04/16/25 08:16 Temperature 98.7 F 96.9 F L Pulse Rate 78 72 72 Respiratory Rate 18 16 Blood Pressure 145/59 H 188/80 H Pulse Oximetry 93 90 Oxygen Delivery Room Air Room Air Oxygen Flow Rate Exam Const: General: comfortable and no acute distress HENMT: Ears: TM's normal bilaterally Face/Nose/Sinus: Normal nares present Mouth: Yes moist mucous membranes Eyes: General: appearance normal, both eyes and all related structures Sclera: sclerae normal Pupils: Equal, round and reactive pupils present Neck: Neck: supple and no JVD Resp: Effort & Inspection: normal respiratory effort Auscultation: diminished lung sounds on the right Other: Productive cough Cardio: Rate: regular rate Rhythm: regular rhythm GI: GI Palp: Yes Soft to palpation Auscultation: normal bowel sounds Skin: General skin exam: normal color and no rashes or lesions noted Wounds: no wounds Neuro: General: gait normal and deep tendon reflexes 2+ bilaterally Speech: normal speech Motor exam (neuro): 5/5 motor strength present throughout Sensory Exam: normal sensation Extrem: General: normal to inspection Psych: Mental Status: mental status grossly normal Affect: normal affect H&P: Results Labs Labs: Short CBC 04/16/25 Range/Units 08:14 WBC 6.4 (4.8-10.8) K/mm3 Hgb 11.7 (11.7-13.8) g/dL Hct 37.4 (35.0-42.0) % Plt Count 291 (150-420) K/mm3 BMP 04/15/25 04/16/25 11:14 08:14 Sodium 140 140 Potassium 3.7 3.6 Chloride 107 103 Carbon Dioxide 27 32 H BUN 11 9 Creatinine 0.71 0.68 L Glucose 125 H 91 Calcium 8.6 8.7 Cardiac Enzymes 04/15/25 Range/Units 11:14 Troponin I < 0.012 (0.000-0.034) ng/mL Liver Function 04/15/25 04/16/25 Range/Units 11:14 08:14 Total Bilirubin 0.7 0.6 (0.2-1.3) mg/dL AST 34 33 (14-36) U/L ALT 29 29 (6-35) U/L Alkaline Phosphatase 64 73 (38-126) U/L Albumin 4.0 4.3 (3.5-5.1) g/dL Urine 04/15/25 Range/Units 13:20 Urine Color Light yellow (Yellow) Urine Appearance Clear (Clear) Urine pH 6.5 (5.0-8.0) Ur Specific [place] <= 1.005 L (1.010-1.020) Urine Protein Negative (Negative) Urine Glucose (UA) Negative (Negative) Assessment and Plan Assessment and plan (1) Pneumonia: Qualifiers: Laterality: bilateral Lung location: unspecified part of lung Pneumonia type: due to unspecified organism Qualified Code(s): J18.9 - Pneumonia, unspecified organism Code(s): J18.9 - Pneumonia, unspecified organism Status: Acute Assessment and Plan: patient presented with cough and congestion CTA showing right middle and upper lobe pneumonia. BNP was elevated but no evidence of CHF exacerbation and no history of heart failure * Bronchodilators attempt but patient did not like the feel so discontinued * blood cultures NGTD * incentive spirometry while awake. * influenza/COVID/RSV negative * ceftriaxone and azithromycin * Mucinex * supplemental oxygen therapy to maintain oxygen 92% (2) HTN (hypertension): Code(s): I10 - Essential (primary) hypertension Status: Acute Assessment and Plan: patient's BP was elevated this a.m. however she had not received her blood pressure medication continue to monitor and adjust as needed * continue metoprolol and nifedipine * BP per unit protocol (3) Hyperlipidemia: Code(s): E78.5 - Hyperlipidemia, unspecified Status: Acute Assessment and Plan: * continued atorvastatin Plan Code status: Full code per patient DVT prophylaxis: Lovenox Stress ulcer prophylaxis: NA PT/OT notes: NA Disposition: patient continues admission for pneumonia will continue with current treatment possible discharge home tomorrow if events overnight Quality VTE Prophylaxis VTE prophylaxis: pharmacologic ordered -Patient's previous records reviewed on admission -ER notes reviewed in detail on admission -discussed all findings and current treatment plan with patient/Family/POA -Consultations reviewed for recommendations -Patient's disposition for safe discharge discussed with patient case coordinator Dictation performed by [employer] direct speech recognition software, therefore breaker hand variants and typographical errors may occur. Hospitalist MIPS Advance Care Plan I have confirmed that the patient's Advanced Care Plan is present, code status is documented, or surrogate decision maker is listed in patient medical record.: Yes Medication Reconciliation I have utilized all available resources to obtain, update and review the patients current medications (includes all prescriptions, OTC, herbals, cannabis, and nutritional supplements).: Yes The patient is not eligible for med reconciliation; the patient is in a emergent medical situation where delaying treatment would jeopardize the patients health.: No
--- NOTE | 2025-04-16 11:59 | PHAR ---
Drug Name:?sulfaSALAzine Color:?Yellow Shape:?[place] Imprint:??TV 7U Imprint Code Description:?Debossed TV score 7U on one side and plain on the other side Form:?Oral Tablet
--- NOTE | 2025-04-16 12:26 | PC.NURSE ---
Spoke with Candice Pharmacist re: Sulfasalazine 1500. Candice informs this medication should be in [facility] main pharmacy. Med not located in main pharmacy per 2 nursing staff. Request for FIELD SUPERINTENDENT to change order to NF and able to use home med. Called [facility] left message for Candice informing medication order we spoke about earlier would be changed per FIELD SUPERINTENDENT. Requesting if she had any other questions to call [facility] 2nd floor.
[2025-04-16] MEDS: DICLOFENAC SODIUM 1% 100 GM GEL (*BKC) TOPICAL ×2 (13:20→17:13)
[2025-04-16] MEDS: SULFASALAZINE 500 MG PO ×2 (13:27→17:14)
[2025-04-16] MEDS: [UNRECOGNIZED DRUG - OTHER] PO ×2 (13:27→17:14)
[2025-04-16 13:44] LABS: Hemoglobin A1C < 4.7 % (<5.7)
--- NOTE | 2025-04-16 15:04 | PC.NURSE ---
Patient transferred to [facility] on 03/16/25 at 1433 and again today 04/16/25 at 1346. Informed Carley in patient access who informs we will go with the most recent until more information comes on this situation.
[2025-04-16 16:00] VITALS: BP 174/68; PULSE 63; RESP 16; TEMP 35.8; O2SAT 96
[2025-04-16 20:00] VITALS: PULSE 70; RESP 16; O2SAT 96
[2025-04-16 20:55] VITALS: PULSE 66
[2025-04-16] MEDS: PRIMIDONE 50 MG TABLET PO (20:59)
[2025-04-17] VITALS: BP 173/76; PULSE 64; RESP 16; TEMP 36.3; O2SAT 93
[2025-04-17 07:09] LABS: Basophils Absolute Auto 0.04 K/mm3 (0.00-0.10); Basophils Percent Auto 0.7 % (0.0-1.0); Eosinophils Absolute Auto 0.15 K/mm3 (0.02-0.50); Eosinophils Percent Auto 2.7 % (1.0-6.0); Hematocrit 33.7 % (35.0-42.0); Hemoglobin 10.8 g/dL (11.7-13.8); Immature Granulocyte Absolute 0.02 K/mm3 (0.00-0.00); Immature Granulocyte Percent A 0.4 % (0.0-0.0); Lymphocytes Absolute Auto 1.45 K/mm3 (1.10-4.50); Lymphocytes Percent Auto 26.5 % (18.0-42.0); Mean Corpuscular Hemoglobin 32.5 pg (27.0-31.0); Mean Corpuscular Volume 101.5 fL (78.0-102.0); Mean Platelet Volume 9.6 fl (9.2-11.8); Monocytes Absolute Auto 0.66 K/mm3 (0.10-0.90); Monocytes Percent Auto 12.1 % (2.0-11.0); Neutrophils Absolute Auto 3.15 K/mm3 (1.70-7.20); Neutrophils Percent Auto 57.6 % (50.0-70.0); Platelet Count Result 261 K/mm3 (150-420); Red Blood Count 3.32 M/mm3 (4.20-5.40); Red Cell Distribution Width 12.1 % (11.6-14.4); White Blood Count 5.5 K/mm3 (4.8-10.8)
[2025-04-17 07:23] LABS: Alanine Aminotransferase 22 U/L (6-35); Albumin Level 3.8 g/dL (3.5-5.1); Alkaline Phosphatase 69 U/L (38-126); Anion Gap 4 mmol/L (4-12); Aspartate Amino Transferase 29 U/L (14-36); Bilirubin,Total 0.5 mg/dL (0.2-1.3); Blood Urea Nitrogen 11 mg/dL (7-17); Calcium 8.7 mg/dL (8.4-10.2); Carbon Dioxide 29 mmol/L (22-30); Chloride 106 mmol/L (98-107); Estimated CRCL calculation 39 ml/min; Estimated Glomerular Filt Rate > 60; Glucose 94 mg/dL (65-110); Magnesium 2.2 mg/dL (1.6-2.3); Osmolality Calculated 287 mOsm/kg (285-295); Potassium 3.9 mmol/L (3.4-5.0); Sodium 139 mmol/L (137-145); Total Protein 6.7 g/dL (6.3-8.2)
[2025-04-17 07:57] VITALS: BP 190/79; PULSE 70; RESP 16; TEMP 35.9; O2SAT 93
[2025-04-17] MEDS: ENOXAPARIN 40 MG/0.4 ML SYRINGE SUB-Q (08:30)
[2025-04-17] MEDS: DICLOFENAC SODIUM 1% 100 GM GEL (*BKC) TOPICAL (08:31)
[2025-04-17] MEDS: SULFASALAZINE 500 MG PO (08:32)
[2025-04-17] MEDS: [UNRECOGNIZED DRUG - OTHER] PO (08:32)
[2025-04-17 08:33] VITALS: PULSE 70
[2025-04-17] MEDS: ATORVASTATIN 10 MG TABLET 20 MG PO (08:33)
[2025-04-17] MEDS: METOPROLOL TARTRATE 50 MG TAB 100 MG PO (08:33)
[2025-04-17] MEDS: VENLAFAXINE HCL XR 75 MG CAP.ER.24H PO (08:34)
[2025-04-17] MEDS: guaiFENesin 12 HR 600 MG TABCR 1200 MG PO (08:34)
[2025-04-17] MEDS: AZITHROMYCIN 250 MG TABLET 500 MG PO (08:34)
[2025-04-17] MEDS: NIFEdipine 30 MG TAB.ER.24 60 MG PO (08:35)
[2025-04-17] MEDS: FOLIC ACID 1 MG TABLET PO (08:35)
[2025-04-17] MEDS: MAGNESIUM OXIDE 400 MG TABLET PO (08:35)
--- NOTE | 2025-04-17 09:28 | PC.NURSE ---
Patient's BP down to 166/78
--- NOTE | 2025-04-17 09:37 | P.DS_ITS ---
DS: Admitting Diagnosis Discharge Date 04/17/2025 Admitting Diagnosis Pneumonia DS: Discharge Diagnosis Discharge Diagnosis (1) Pneumonia: Qualifiers: Laterality: bilateral Lung location: unspecified part of lung Pneumonia type: due to unspecified organism Qualified Code(s): J18.9 - Pneumonia, unspecified organism Code(s): J18.9 - Pneumonia, unspecified organism Status: Acute (2) HTN (hypertension): Code(s): I10 - Essential (primary) hypertension Status: Acute (3) Hyperlipidemia: Code(s): E78.5 - Hyperlipidemia, unspecified Status: Acute Plan Disposition: Discharged to home DS: Summary Hospital Course Reason for hospitalization: Pneumonia Hospital Course: Patient was a 89-year-old female who presented to the emergency department with complaints of ongoing cough congestion with mild shortness of breath for the past 2 days. patient recently moved back in with her son from [facility] and began to have worsening cough congestion and she further notice some green sputum production. Patient reports past medical history of hypertension, HLD, OA. in the emergency department patient had mildly elevated D-dimer and BNP is elevated at 1600 but no previous history of CHF at that time ED did give single dose of IV Lasix and patient was sent for CTA to rule out PE CTA was negative for PE however did show patchy lung disease in the right upper and middle lobes consistent with multifocal pneumonia. patient did have normal WBC and labs for otherwise unremarkable vital stable. Patient was seen this following day reported feeling better remained on room air, denied shortness breath or chest pain but still had significant productive cough. patient denied any nausea vomiting fever chills. Patient was continued on IV ceftriaxone and oral azithromycin initially had given her DuoNebs but she did not tolerate well so discontinued but continued with Mucinex and incentive spirometer. patient with overall improvement to symptoms still mild cough but remained afebrile and normal WBC blood cultures with no growth to date. patient felt close to baseline except for mild cough she was discharged home with family on oral Augmentin and azithromycin I encouraged her to continue with incentive spirometer and supportive care at home prescribed Mucinex but could use OTC for a mucolytic. patient did have some hypertension during the course of her hospitalization at which time I increased her nifedipine 30 mg to 60 mg b.i.d. with plans to follow up with her primary care physician after discharge. CTA chest showed smell right hydronephrosis however patient's UA was negative patient asymptomatic. patient with no difficulty with urination or retention. Patient acknowledged and agreed with discharge plan. Status at Discharge Functional status at discharge: independent ambulation Overall status at discharge: patient is progressing back to baseline Time Spent with Patient Time attestation: Total time spent providing and/or coordinating discharge services: Time spent: Greater than 30 minutes Exam Const: General: comfortable and no acute distress HENMT: Ears: TM's normal bilaterally Face/Nose/Sinus: Normal nares present Mouth: Yes moist mucous membranes Eyes: General: appearance normal, both eyes and all related structures Sclera: sclerae normal Pupils: Equal, round and reactive pupils present Neck: Neck: supple and no JVD Resp: Effort & Inspection: normal respiratory effort Auscultation: diminished lung sounds on the right Other: Productive cough Cardio: Rate: regular rate Rhythm: regular rhythm GI: Auscultation: normal bowel sounds Skin: General skin exam: normal color and no rashes or lesions noted Wounds: no wounds Neuro: General: gait normal and deep tendon reflexes 2+ bilaterally Cranial nerves: Yes Equal, round and reactive pupils present Speech: normal speech Motor exam (neuro): 5/5 motor strength present throughout Sensory Exam: normal sensation Extrem: General: normal to inspection Psych: Mental Status: mental status grossly normal Affect: normal affect DS: Data Data Completed and Pending Labs on day of discharge: Labs from last 24 hours 04/17/25 04/16/25 06:53 08:14 WBC 5.5 RBC 3.32 L Hgb 10.8 L Hct 33.7 L MCV 101.5 MCH 32.5 H MCHC 32.0 RDW 12.1 Plt Count 261 MPV 9.6 Immature Gran % (Auto) 0.4 H Neut % (Auto) 57.6 Lymph % (Auto) 26.5 [place] % (Auto) 12.1 H Eos % (Auto) 2.7 Baso % (Auto) 0.7 Lymph # (Auto) 1.45 [place] # (Auto) 0.66 Eos # (Auto) 0.15 Baso # (Auto) 0.04 Abs Immat Gran (auto) 0.02 H Absolute Neuts (auto) 3.15 Absolute Nucleated RBC 0.00 Nucleated RBC % 0.0 Sodium 139 Potassium 3.9 Chloride 106 Carbon Dioxide 29 Anion Gap 4 BUN 11 Creatinine 0.70 Estim Creat Clear Calc 39 Estimated GFR > 60 Glucose 94 Hemoglobin A1c < 4.7 Calculated Osmolality 287 Calcium 8.7 Magnesium 2.2 Total Bilirubin 0.5 AST 29 ALT 22 Alkaline Phosphatase 69 Total Protein 6.7 Albumin 3.8 Preliminary micro results at discharge 04/15/25 11:14 Blood Culture - Preliminary Blood 04/15/25 11:00 Blood Culture - Preliminary Blood Imaging Radiologist's impression: EXAMINATION: CTA chest PE protocol DATE: 04/15/2025 12:48 INDICATION: Shortness of breath and 2 days of cough. TECHNIQUE: Computed tomography (CT) pulmonary angiogram of the chest was performed with 100 mL Omnipaque-350 intravenous contrast. Additional 3D reconstructions utilizing coronal maximum intensity projection (MIP) were performed. Automated exposure control and iterative reconstruction technique were employed. The dose-length product was 279.59 mGy-cm. COMPARISON: None FINDINGS: No pulmonary embolism. Subtle small centrilobular groundglass opacities in the apical and posterior segments of the right upper lobe and in the lateral segment of the right middle lobe. There is mild discoid atelectasis at the left lung base of the medial and anterior basilar left lower lobe. Additional mild dependent atelectasis in both lungs which accentuates some mild underlying emphysema. There are few small calcified nodules in both lungs along with calcified right hilar lymph nodes and scattered small hepatic and splenic calcific lesions consistent with old granulomatous disease. No pulmonary edema or pleural effusion. Heart size is normal. Atherosclerotic coronary artery calcific location. No pericardial effusion. Thoracic aorta is normal in caliber with no dissection. No pathologically enlarged thoracic lymphadenopathy. Abdominal wall sutures along the midline of the visualized upper abdomen. Mild right hydronephrosis of indeterminate etiology. Mild to moderate thoracic spondylosis. IMPRESSION: 1. No pulmonary embolism. 2. Patchy lung disease in the right upper and middle lobes consistent with multifocal pneumonia. 3. Mild right hydronephrosis of indeterminate etiology. Correlate with urinalysis and consider further CT imaging of the nonvisualized more caudal abdomen and pelvis. Discharge Plan Discharge Attending physician on discharge: Shree Aldana Consulting providers: Naima Hester Discharging Clinician: Naima Hester Anticipated Discharge Date/Time: 04/17/25 09:26 Patient Disposition: Home Activity: may shower and as tolerated Diet: heart healthy Discharge Instructions: 1). Pneumonia: * I have prescribed oral antibiotics please take if indicated incomplete even if feeling better * continue with incentive spirometer attempt to complete once an hour * I have also prescribed guaifenesin which can also be bought OTC under Mucinex this will help thin secretions * I encourage oral hydration as tolerated * you may also use acetaminophen as needed for mild fevers or pain 2). hypertension * your blood pressure remained elevated during admission at this time I have increased her nifedipine from 30 mg to 60 mg * please follow-up with your primary care physician How can you care for yourself at home? ? Keep track of any new symptoms or changes in your symptoms. ? Rest until you feel better. ? Be safe with medicines. Take your medicines exactly as prescribed. Call your doctor if you think you are having a problem with your medicine. ? Do not drive after taking a prescription pain medicine. ? Ensure to follow-up with primary care physician as indicated and provide updated medication list provided to you at discharge. When should you call for help? Call 911 anytime you think you may need emergency care. For example, call if: ? You passed out (lost consciousness). Call your doctor now or seek immediate medical care if: ? You have new symptoms like fever, difficulty breathing, Chest pain, vomiting, or rash. ? You have new or different pain. ? You are confused and are having trouble thinking clearly. ? Your symptoms are getting worse. Watch closely for changes in your health, and be sure to contact your doctor if: ? You do not get better as expected. Patient Instructions: Antibiotic Form, Community Acquired Pneumonia (DC) Patient Language: Citizen Of [place] Stand Alone Forms: General Discharge Information Follow-up/Referrals: Juventino,Susie Patel [Other] - 2 weeks Discharge Medications: New azithromycin [Zithromax] 250 mg Tablet 500 mg PO DAILY Qty: 6 0RF guaifenesin [Mucus Relief ER] 600 mg Tablet Extended Release 12hr 1,200 mg PO Q12HR Qty: 20 0RF nifedipine [Procardia XL] 60 mg tablet extended release 24hr 60 mg PO DAILY Qty: 60 0RF amoxicillin-pot clavulanate 875-125 mg tablet 1 tablet PO Q12H Qty: 8 0RF Continued atorvastatin 20 mg tablet 20 mg PO DAILY dexlansoprazole 60 mg capsule,biphase delayed releas 60 mg PO DAILY diclofenac sodium 1 % gel 2 g topical QID Rx Instructions: apply to single elbow, wrist or hand; for hand includes palm/fingers/back of hand folic acid 1 mg tablet 1 mg PO DAILY primidone 50 mg tablet 50 mg PO HS venlafaxine 75 mg capsule,extended release 24hr 75 mg PO DAILY metoprolol tartrate 100 mg tablet 100 mg PO Q12H sulfasalazine 500 mg tablet 1,500 mg PO BID magnesium oxide 250 mg magnesium tablet 250 mg PO DAILY Discontinued amlodipine-benazepril 10-20 mg capsule 1 cap PO DAILY nifedipine 30 mg tablet extended release 30 mg PO Q12H Date of admission: 04/15/25 13:23 Primary Care Provider: JuventinoSusie Admitting Provider: Shree Aldana Attending physician on admission: Shree Aldana Condition: Stable Quality VTE Prophylaxis VTE prophylaxis: pharmacologic ordered -Patient's previous records reviewed on admission -ER notes reviewed in detail on admission -discussed all findings and current treatment plan with patient/Family/POA -Consultations reviewed for recommendations -Patient's disposition for safe discharge discussed with pillowcase turner Dictation performed by [employer] direct speech recognition software, therefore device test engineer variants and typographical errors may occur. Hospitalist LASHANDA Heart Failure (Exclusion) Patient has history of Heart Transplant or Left Ventricular Assistive Device?: No IF YES, STOP HERE Heart Failure (Qualifier) Patient has current or prior documentation of LVEF less than or equal to 40%, or mod/servere depressed LVSF?: No IF NO, STOP HERE
--- NOTE | 2025-04-17 10:30 | PC.NURSE ---
Patient given a shower prior to discharge.
--- NOTE | 2025-04-17 10:55 | PC.NURSE ---
Discharge instructions given to patient and patient's grandson. Both voiced understanding. Patient belongings and home medications sent home with patient. Patient left unit in w/c accompanied by her grandson and her nurse. Patient left hospital grounds in privately owned vehicle.
--- NOTE | 2025-04-17 17:32 | PC.NURSE ---
michael called and procardia dose verified with physical medicine physician and she is to take 60mg twice a day. called him back and reverifed this with him. she wanted 60mg twice daily and she wrote daily but did give 60 tabs enough for 30 days til they can follow up with primary care. michael vocalizes an understanding
--- NOTE | 2025-04-18 09:02 | PC.NURSE ---
Spoke with Marsha for discharge call back. She informs she has not questions with discharge instruction at this time.
== END 2025-04-17 10:55 | disposition home or self-care (01) ==
LOC: CHSED 13:22 → CHS2ND 13:34
PROVIDERS: Nurse Practitioner Family; Admitting Provider Internal Medicine; Emergency Provider Emergency Medicine; Visit Provider Internal Medicine
DX: J18.9 Pneumonia, unspecified organism (principal); I10 Essential (primary) hypertension; E78.5 Hyperlipidemia, unspecified; M19.90 Unspecified osteoarthritis, unspecified site; Z20.822 Contact with and (suspected) exposure to COVID-19; Z79.899 Other long term (current) drug therapy
CPT/HCPCS: 36415; 71045; 71275; 80053; 81003; 83036; 83605; 83735; 83880; 84484; 85025; 85380; 85610; 85730; 87040; 87637; 93005; 94640; 96365; 96372; 96375; 99285; A9270; G0378; J0456; J0696; J1650; J1938; Q9967

== ENCOUNTER 2025-09-04 20:31 | Emergency (ER) | payer MEDICARE, OTHER, SELFPAY ==
--- NOTE | ~2025-09-04 | CT_ITS ---
CT CERVICAL SPINE WITHOUT CONTRAST HISTORY: fall/PATIENT DENIES ANY PAIN OR COMPLAINTS COMPARISON: None TECHNIQUE: Axial images of the cervical spine were obtained. Multiplanar reconstruction in the coronal, sagittal and axial reformats to evaluate for cervical fracture. FINDINGS: The images demonstrate no acute fracture or paravertebral soft tissue swelling. Marked degenerative changes with disc narrowing. And facet joint arthropathy . The visualized aspect of the upper lungs are clear. IMPRESSION: No acute fracture or subluxation. Moderate degenerative changes. All CT scans at this facility are performed using low dose modulation techniques as appropriate to perform exam including the following: automated exposure control; adjustment of the mA and/or kV according to patient size (this includes techniques or standardized protocols for targeted exams where does is matched to indication/reason for exam; i.e. extremities or head); use of iterative reconstruction technique). Reviewed, dictated and finalized at location S. IMPRESSION: No acute fracture or subluxation. Moderate degenerative changes. All CT scans at this facility are performed using low dose modulation techniqu es as appropriate to perform exam including the following: automated exposure c ontrol; adjustment of the mA and/or kV according to patient size (this includes techniques or standardized protocols for targeted exams where does is matched to indication/reason for exam; i.e. extremities or head); use of iterative julee nstruction technique).
--- NOTE | ~2025-09-04 | CT_ITS ---
CT brain wo con HISTORY:fall/PATIENT DENIES ANY PAIN OR COMPLAINTS COMPARISON: None. TECHNIQUE: Axial images were obtained of the head without intravenous contrast. FINDINGS: No acute intracranial hemorrhage, mass effect or midline shift. No extra-axial fluid collections. There is generalized atrophy and chronic white matter microangiopathic changes.The calvarium is intact. Visualized paranasal sinuses and mastoid air cells are clear. IMPRESSION: No acute intracranial hemorrhage or extra axial fluid collections. Generalized atrophy and chronic white matter microangiopathic changes. All CT scans at this facility are performed using low dose modulation techniques as appropriate to perform exam including the following: automated exposure control; use of iterative reconstruction technique; adjustment of the mA and/or kV according to patient size (this includes techniques or standardized protocols for targeted exams where dose is matched to indication/reason for exam). Reviewed, dictated and finalized at location S. IMPRESSION: No acute intracranial hemorrhage or extra axial fluid collections. Generalized atrophy and chronic white matter microangiopathic changes. All CT scans at this facility are performed using low dose modulation techniqu es as appropriate to perform exam including the following: automated exposure c ontrol; use of iterative reconstruction technique; adjustment of the mA and/or kV according to patient size (this includes techniques or standardized protocol s for targeted exams where dose is matched to indication/reason for exam).
--- NOTE | ~2025-09-04 | XR_ITS ---
XR chest 1V portable INDICATION:fall/PATIENT DENIES ANY PAIN OR COMPLAINTS . REFERENCE: None FINDINGS: A single AP of the chest demonstrates normal heart size. The lungs are clear. There is no evidence of pneumothorax or pleural effusion. IMPRESSION: No acute pulmonary findings. Reviewed, dictated and finalized at location S.
[2025-09-04 20:32] VITALS: BP 148/99; PULSE 56; RESP 18; TEMP 36; O2SAT 97
--- NOTE | 2025-09-04 20:54 | ECG_ITS ---
Test Date: 2025-09-04 21:18:34 Measurements Intervals [place] Rate: 52 P: 17 CA: 153 QRS: -1 QRSD: 104 T: -30 QT: 458 QTc: 427 Interpretive Statements SINUS BRADYCARDIA T-WAVE ABNORMALITY IN ANTEROLAT/INF LEADS- CONSIDER ISCHEMIA BASELINE ARTIFACT- I, II, III, AVR, AVL, AVF, V1-V6 ABNORMAL ECG Compared to ECG 04/15/2025 11:05:39 HEART RATE HAS DECREASED T-wave abnormality now present Possible ischemia now present Electronically Signed On 09-05-2025 05:42:56 CDT by Thomas Coates D.O.
--- NOTE | 2025-09-04 20:56 | ED.FALL ---
HPI - Fall General Chief Complaint: Fall Stated Complaint: fall Time Seen by Provider: 09/04/25 20:54 Source: patient and family Mode of arrival: ambulatory Limitations: clinical condition History of Present Illness HPI Narrative: Patient is a 89-year-old female with a fall today and also in the past week. She hit her head. She was brought in for further evaluation at this time. Family says this is similar to a prior episode when she had a UTI. MD complaint: fall Onset (ago): day(s) (One and a few days prior) Fall from: standing Fall witnessed: no Place fall occurred: home Loss of consciousness: unsure Prolonged down time: no Symptoms prior to fall: none Context: tripped/slipped Location of injury: head Severity: moderate Severity scale (1-10): 4 Quality: dull Associated symptoms (after fall): denies and confusion Related Data Home Medications ?Medication ?Instructions ?Recorded ?Confirmed ?Last Taken ?Type atorvastatin 20 mg tablet 20 mg PO DAILY 04/15/25 04/15/25 04/15/25 08:00 History 20 mg dexlansoprazole 60 mg 60 mg PO DAILY 04/15/25 04/15/25 04/15/25 08:00 History capsule,biphase delayed release 60 mg diclofenac sodium 1 % topical gel 2 g topical QID 04/15/25 04/15/25 04/15/25 08:00 History 2 g folic acid 1 mg tablet 1 mg PO DAILY 04/15/25 04/15/25 04/15/25 08:00 History 1 mg magnesium oxide 250 mg PO DAILY 04/15/25 04/15/25 04/14/25 19:00 History 250 mg metoprolol tartrate 100 mg tablet 100 mg PO Q12H 04/15/25 04/15/25 04/15/25 08:00 History 100 mg primidone 50 mg tablet 50 mg PO HS 04/15/25 04/15/25 04/14/25 19:00 History 50 mg sulfasalazine 500 mg tablet 1,500 mg PO BID 04/15/25 04/15/25 04/15/25 08:00 History 1,500 mg venlafaxine 75 mg capsule,extended 75 mg PO DAILY 04/15/25 04/15/25 04/15/25 08:00 History release 24 hr 75 mg Allergies Allergy/AdvReac Type Severity Reaction Status Date / Time codeine Allergy Unknown Unknown Verified 09/04/25 20:34 Tetanus Vaccines and Toxoid Allergy Unknown Unknown Verified 09/04/25 20:34 Review of Systems Review of Systems: All systems reviewed & are unremarkable except as noted in HPI and below Constitutional: Constitutional: Reports no additional constitutional complaints Eyes: Eyes: Reports no additional eye complaints ENT: Reports system reviewed and no additional complaints, except as documented Cardiovascular: Cardiovascular: Reports no additional cardiovascular complaints Respiratory: Respiratory: Reports no additional respiratory complaints Gastrointestinal: Gastrointestinal: Reports no additional gastrointestinal complaints Genitourinary: Genitourinary: Reports no additional female genitourinary complaints Musculoskeletal: Musculoskeletal: Reports no additional musculoskeletal complaints Integumentary/Breasts: Skin/Breast: Reports system reviewed and no additional complaints, except as docu Neurologic: Reports system reviewed and no additional complaints, except as documented Psychiatric: Psychiatric: Reports no additional psychiatric complaints Endocrine: Endocrine: Reports no additional endocrine complaints Hematologic/Lymphatic: Hematologic/Lymphatic: Reports no additional hematologic/lymphatic complaints Allergic/Immunologic: Allergic/Immunologic: Reports no additional allergic/immunologic complaints PMFSH Past Medical History Medical History HTN (hypertension) Social History Social History Smoking status: Never smoker Second hand tobacco smoke exposure: Yes Alcohol intake: never Substance use: never Substance use type: does not use Do You Feel Safe in your Home?: Yes Lack of Transportation: No Lack of Food: Never True Current Housing: I Have Housing Concerned About Future Housing: No Difficulty Paying Gas/Electric Bills: No Difficulty Paying for Meds: No Currently Unemployed: No Education: High School Diploma/GED Difficulty w/ Childcare or Family Care: No Spiritual care concerns: No Exam Const: General: healthy appearing Nutritional Appearance: well nourished Orientation/consciousness: patient oriented x3 HENMT: Head: normal to inspection Ears: external ears normal Face/Nose/Sinus: Normal external nose present Face and sinus: normal facial exam Eyes: Conjunctivae: conjunctivae normal Pupils: Equal, round and reactive pupils present EOM: EOMs intact bilaterally Neck: Neck: normal visual inspection, no lymphadenopathy and no meningeal signs Chest: Chest palpation & inspection: normal inspection of the chest Resp: Effort & Inspection: normal respiratory effort, not labored, no retractions and not tachypneic Auscultation: clear to auscultation bilaterally, no crackles, no rales and no rhonchi Cardio: Rate: regular rate Rhythm: regular rhythm Heart sounds: no murmurs GI: Inspection: non-distended GI Palp: Yes Soft to palpation, Yes Tenderness to palpation present (GI) and Yes Guarding due to palpation present (GI) Auscultation: normal bowel sounds : General: Yes bladder normal to palpation Back/Spine/Pelvis: Back: no CVA tenderness Skin: General skin exam: normal color Rashes: no rashes Wounds: no wounds Neuro: General: patient oriented x3, moves all extremities and no meningeal signs Cranial nerves: Yes Nystagmus not present Speech: normal speech Gait exam (Neuro): Normal gait present Other: Fast exam negative, NIH is 0, GCS 15 Extrem: General: normal to inspection, no clubbing, cyanosis or edema and no pedal edema Psych: Mental Status: mental status grossly normal Affect: normal affect Attitude: cooperative Course Vital Signs Vital signs: Vital Signs Temperature 36.0 C L 09/04/25 20:32 Pulse Rate 56 L 09/04/25 20:32 Respiratory Rate 18 09/04/25 20:32 Blood Pressure 148/99 H 09/04/25 20:32 Pulse Oximetry 97 09/04/25 20:32 Oxygen Delivery Room Air 09/04/25 20:32 Temperature 36.0 C L 09/04/25 20:32 Pulse Rate 56 L 09/04/25 20:32 Respiratory Rate 18 09/04/25 20:32 Blood Pressure 148/99 H 09/04/25 20:32 Pulse Oximetry 97 09/04/25 20:32 Oxygen Delivery Room Air 09/04/25 20:32 MDM - Fall MDM Narrative Medical decision making narrative: Patient is an 82-year-old female with 2 falls this week and hit her head. We will do workup at this time. Lab Data Attestation: I reviewed the patient's lab results. 09/04/25 21:25 09/04/25 21:25 Labs: Lab Results 09/04/25 09/04/25 Range/Units 21:15 21:25 WBC 5.1 (4.8-10.8) K/mm3 RBC 2.87 L (4.20-5.40) M/mm3 Hgb 9.9 L (11.7-13.8) g/dL Hct 30.5 L (35.0-42.0) % MCV 106.3 H (78.0-102.0) fL MCH 34.5 H (27.0-31.0) pg MCHC 32.5 (32-36) g/dL RDW 12.3 (11.6-14.4) % Plt Count 238 (150-420) K/mm3 MPV 10.1 (9.2-11.8) fl Immature Gran % (Auto) 0.4 H (0.0-0.0) % Neut % (Auto) 44.6 L (50.0-70.0) % Lymph % (Auto) 37.6 (18.0-42.0) % [place] % (Auto) 14.2 H (2.0-11.0) % Eos % (Auto) 2.4 (1.0-6.0) % Baso % (Auto) 0.8 (0.0-1.0) % Lymph # (Auto) 1.91 (1.10-4.50) K/mm3 [place] # (Auto) 0.72 (0.10-0.90) K/mm3 Eos # (Auto) 0.12 (0.02-0.50) K/mm3 Baso # (Auto) 0.04 (0.00-0.10) K/mm3 Abs Immat Gran (auto) 0.02 H (0.00-0.00) K/mm3 Absolute Neuts (auto) 2.27 (1.70-7.20) K/mm3 Absolute Nucleated RBC 0.00 (0.00-0.00) K/mm3 Nucleated RBC % 0.0 (0-0.0) % Sodium 136 L (137-145) mmol/L Potassium 4.1 (3.4-5.0) mmol/L Chloride 99 (98-107) mmol/L Carbon Dioxide 29 (22-30) mmol/L Anion Gap 8 (4-12) mmol/L BUN 27 H D (7-17) mg/dL Creatinine 1.27 H (0.7-1.0) mg/dL Estim Creat Clear Calc 25 ml/min Estimated GFR 40 L (59 - ) Glucose 114 H (65-110) mg/dL Calculated Osmolality 288 (285-295) mOsm/kg Lactic Acid 1.2 (0.4-2.0) mmol/L Calcium 9.4 (8.4-10.2) mg/dL Total Bilirubin 0.4 (0.2-1.3) mg/dL AST 31 (14-36) U/L ALT 14 (6-35) U/L Alkaline Phosphatase 58 (38-126) U/L Troponin I < 0.012 (0.000-0.034) ng/mL Total Protein 8.0 (6.3-8.2) g/dL Albumin 4.5 (3.5-5.1) g/dL Urine Color Light yellow (Yellow) Urine Appearance Clear (Clear) Urine pH 5.5 (5.0-8.0) Ur Specific [place] 1.015 (1.010-1.020) Urine Protein Negative (Negative) Urine Glucose (UA) Negative (Negative) Urine Ketones Negative (Negative) Ur Blood (Man) Negative (Negative) Urine Nitrate Positive H (Negative) Urine Bilirubin Negative (Negative) Urine Urobilinogen 0.2 (0.2-1.0) mg/dL Leukocyte Esterase Rfl Negative (Negative) MARY/UL Urine RBC 0-2 (0-2) /hpf Urine WBC 0-3 (0-3) /hpf Ur Squamous Epith Cells None seen (Few) /hpf Urine Bacteria 3+ H (None) /hpf Imaging Data Attestation: I personally reviewed and interpreted this imaging study as follows: Radiologist's impression: CT scan of the head is negative for acute process CT scan of the cervical spine is negative for acute process Chest x-ray is negative for acute process ECG Data EKG #1: Attestation: I personally reviewed and interpreted this ECG as follows: ECG completion date: 09/04/25 ECG completion time: 22:35 EKG Interpretation: normal rate, bradycardia, sinus rhythm, no ectopy, non-specific ST changes, normal QRS, normal QT and left axis Discharge Plan Discharge Clinical Impression: Fall, Head injury, Acute UTI Patient Disposition: Home Condition: Stable Instructions: Antibiotic Form, Head Injury (ED), Urinary Tract Infection in Older Adults (ED) Patient Language: Kiswahili Prescriptions: New ciprofloxacin HCl [Cipro] 500 mg tablet 500 mg PO BID 7 Days Qty: 14 0RF No Action atorvastatin 20 mg tablet 20 mg PO DAILY dexlansoprazole 60 mg capsule,biphase delayed releas 60 mg PO DAILY diclofenac sodium 1 % gel 2 g topical QID Rx Instructions: apply to single elbow, wrist or hand; for hand includes palm/fingers/back of hand folic acid 1 mg tablet 1 mg PO DAILY primidone 50 mg tablet 50 mg PO HS venlafaxine 75 mg capsule,extended release 24hr 75 mg PO DAILY metoprolol tartrate 100 mg tablet 100 mg PO Q12H sulfasalazine 500 mg tablet 1,500 mg PO BID magnesium oxide 250 mg magnesium tablet 250 mg PO DAILY azithromycin [Zithromax] 250 mg Tablet 500 mg PO DAILY Qty: 6 0RF guaifenesin [Mucus Relief ER] 600 mg Tablet Extended Release 12hr 1,200 mg PO Q12HR Qty: 20 0RF nifedipine [Procardia XL] 60 mg tablet extended release 24hr 60 mg PO DAILY Qty: 60 0RF amoxicillin-pot clavulanate 875-125 mg tablet 1 tablet PO Q12H Qty: 8 0RF Follow-up/Referrals: UNKNOWN,DOCTOR [Non-Staff] Time of Disposition: 22:43
--- OUTSIDE RECORDS SUMMARY | 2025-09-04 21:09 | XMS_ITS | Encounter Summary ---
Author Organization [facility] Address [address] [place] [address] Phone Care Team Providers Care Orthodontic Band Maker Name Role Phone Susie Jauregui MD Primary Care Provider Encounter Details Date Type Department Care Team (Latest Contact Info) Description 09/28/2020 Transcribe Orders [facility] [address] [place] [address] Iam White MD Pre-op testing [...] COVID-19? No / Unsure 09/28/2020 8:52 AM TREE SPECIALIST documented as of this encounter Plan of Treatment Not on file documented as of this encounter Results * (ABNORMAL) Urinalysis Microscopic If Indicated (09/29/2020 6:24 AM TREE SPECIALIST) SPECIFIC GRAVITY 1.017 1.003 - 1.035 09/29/2020 6:58 AM TREE SPECIALIST [facility] URINE PH 5.5 5.0 - 8.0 09/29/2020 6:58 AM [facility] WBC ESTERASE 3+(A) Negative 09/29/2020 6:58 AM [facility] NITRITE Positive(A) Negative 09/29/2020 6:58 AM [facility] PROTEIN, RANDOM URINE Trace(A) Negative 09/29/2020 6:58 AM [facility] URINE GLUCOSE, QUAL Negative Negative 09/29/2020 6:58 AM [facility] URINE KETONES Negative Negative 09/29/2020 6:58 AM [facility] UROBILINOGEN <2.0 <2.0 mg/dL 09/29/2020 6:58 AM [facility] URINE BILIRUBIN Negative Negative 0 6:58 AM [facility] URINE BLOOD Trace(A) Negative douglas/ul 09/29/2020 6:58 AM [facility] URINALYSIS COLOR Yellow Yellow 09/29/2020 6:58 AM [facility] URINALYSIS CLARITY Hazy(A) Clear 09/29/2020 6:58 AM [facility] WBC (Urine) 51-150(A) 0-5, Negative /hpf 09/29/2020 6:58 AM [facility] URINE RBC'S 6-10(A) 0-5, Negative, None /hpf 09/29/2020 6:58 AM [facility] BACTERIA, URINE Many(A) None, Absent /hpf 09/29/2020 6:58 AM [facility] URINE MUCOUS Few None, Rare, Few 09/29/2020 6:58 AM [facility] URINE MICRO REQUIRED Yes 09/29/2020 6:58 AM [facility] URINE SQUAMOUS EPITHELIAL CELLS Large amount(A) Negative /HPF 09/29/2020 6:58 AM [facility] URINE HYALINE CASTS 2-5(A) Occasional /LPF 09/29/2020 6:58 AM [facility] DMH RENAL EPI CELLS 09/29/2020 6:58 AM [facility] URINE SPERM 09/29/2020 6:58 AM [facility] URINE TRICHOMONAS 09/29/2020 6:58 AM [facility] URINE YEAST 09/29/2020 6:58 AM TREE SPECIALIST [facility] Urine URINE SPECIMEN COLLECTION, CLEAN CATCH / Unknown Non-Phlebotomy Collection / Unknown 09/29/2020 6:24 AM TREE SPECIALIST 09/29/2020 6:44 AM TREE SPECIALIST Narrative [facility] - 09/29/2020 6:58 AM TREE SPECIALIST Urine culture has been ordered. Iam White MD URINE ORDERABLES Final Resu lt [facility] [address] [place] [address] documented in this encounter Visit Diagnoses Diagnosis Pre-op testing- Primary Preoperative examination, unspecified documented in this encounter Additional Health Concerns Infection Onset Date Last Indicated Resolved Time PUI 05/07/2021 05/07/2021 05/07/2021 9:27 PM CDT Assessment Noted Time PHQ-9 Depression Total Score: 0 09/28/20 20 9:00 AM T[facility] SPECIALIST documented as of this encounter Care Teams Orthodontic Band Maker Relationship Specialty Start Date End Date Susie Jauregui MD [address] [place] [address] PCP - General Geriatric Medicine 08/26/18 documented as of this encounter
--- OUTSIDE RECORDS SUMMARY | 2025-09-04 21:09 | XMS_ITS | Clinical Summary ---
Author Organization [facility] Address [facility] [place] [address] Care Team Providers Care Grab Setter Name Role Phone Susie Jauregui MD Primary Care Provider [phone] Herbert Guillermo MD Unavailable Allergies Active Allergy Reactions Criticality Noted Date Comments Codeine Vomiting Medium 09/01/2018 Tetanus Toxoid Nausea Only 09/03/2018 Medications magnesium oxide (MAG-OX) 250 MG tablet Take 1 tablet (250 mg total) by mouth daily. Active multivitamin tablet Take 1 tablet by mouth daily. Active acetaminophen 325 MG tablet Take 1-2 tablets (325-650 mg total) by mouth every 4 (four) hours as needed for Pain. Active aspirin EC (ECOTRIN) 81 MG tabletIndications :TIA (transient ischemic attack) Take 1 tablet (81 mg total) by mouth daily. 3 Active metoprolol tartrate (LOPRESSOR) 100 MG tabletIndications :Primary hypertension TAKE 1 TABLET BY MOUTH TWICE A DAY 180 tablet 3 4 Active folic acid (FOLVITE) 1 MG tabletIndications :Low folic acid Take 1 tablet (1 mg total) by mouth daily. 90 tablet 3 5 Active sulfaSALAzine (AZULFIDINE) 500 MG tabletIndications :Osteoporosis, senile Take 3 tablets (1,500 mg total) by mouth 2 (two) times daily. 120 tablet 5 Active venlafaxine XR (EFFEXOR-XR) 75 MG 24 hr capsuleIndication s:Tremors of nervous system Take 1 capsule (75 mg total) by mouth daily. 90 capsule 3 5 Active dexlansoprazole (DEXILANT) 60 MG capsuleIndication s:Esophageal reflux TAKE 1 CAPSULE BY MOUTH EVERY DAY IN THE MORNING BEFORE BREAKFAST 90 capsule 3 5 Active primidone (MYSOLINE) 50 MG tabletIndications :Tremors of nervous system TAKE 3 TABLETS BY MOUTH AT BEDTIME 270 tablet 3 5 Active atorvastatin (LIPITOR) 20 MG tabletIndications :Hypercholesterol emia Take 1 tablet (20 mg total) by mouth daily. 90 tablet 3 5 Active alendronate (FOSAMAX) 70 MG tabletIndications :Osteoporosis, senile TAKE 1 TABLET (70 MG TOTAL) BY MOUTH EVERY 7 DAYS. TAKE IT ON EMPTY STOMACH ONCE A WEEK WITH GLASS OF WATER AND STAY UPRIGHT AND DO NOT EAT DRINK FOR ONE HOUR 12 tablet 1 5 Active meloxicam (MOBIC) 15 MG tablet Take 1 tablet (15 mg total) by mouth daily. 5 Active chlorthalidone (HYGROTEN) 25 MG tablet Take 1 tablet (25 mg total) by mouth daily. 30 tablet 5 5 Active losartan (COZAAR) 100 MG tablet Take 1 tablet (100 mg total) by mouth daily. 30 tablet 6 5 Active NIFEdipine XL (PROCARDIA XL) 60 MG 24 hr tabletIndications :Primary hypertension Take 1 tablet (60 mg total) by mouth daily. 30 tablet 11 5 Active Active Problems Problem Noted Date Diagnosed Date Essential tremor 10/08/2023 Assessment & Plan (02/15/2024 4:38 PM CDT): PLAN: I discussed the pathophysiology, diagnosis and treatment options for benign essential tremor including conservative management, discontinuation of caffeine, weighted assistive devices, signature stamp, Vitaliy band, medications (beta-blockers, antiepileptic medications, benzodiazepines), focused ultrasound and deep brain stimulator therapy. No additional diagnostic testing is needed at this time. The patient will continue primidone through her pcp. I have discussed the most common adverse reactions, side effects and benefits of the medication with the patient. The patient is to call for any problems. Assessment & Plan (10/08/2023 10:50 AM SUBJECT SCIENTIFIC RESEARCH): PLAN: I discussed the pathophysiology, diagnosis and treatment options for benign essential tremor including conservative management, discontinuation of caffeine, weighted assistive devices, signature stamp, Vitaliy band, medications (beta-blockers, antiepileptic medications, benzodiazepines), focused ultrasound and deep brain stimulator therapy. No additional diagnostic testing is needed at this time. The patient will continue primidone through her pcp. I have discussed the most common adverse reactions, side effects and benefits of the medication with the patient. The patient is to call for any problems. TIA (transient ischemic attack) 10/08/2023 Assessment & Plan (02/26/2024 11:27 AM CDT): PLAN: I discussed the pathophysiology, diagnostic tests, diagnosis and treatment options for TIA with the patient including diet, exercise and medication management. The patient has been encouraged to follow a healthy diet such as the Mediterranean diet and to pursue a regular home exercise program for stroke prevention. The patient will continue aggressive management of stroke risk factors including things such as diabetes, hypertension and dyslipidemia. The patient will continue Lotrel, metoprolol and nifedipine for the treatment of hypertension. The patient will continue atorvastatin therapy for dyslipidemia. The patient will continue ASA 81 mg for stroke prevention. The signs and symptoms of stroke have been discussed with the patient and when to call 911 and present to the emergency department. Assessment & Plan (10/08/2023 11:00 AM SUBJECT SCIENTIFIC RESEARCH): PLAN: I discussed the pathophysiology, diagnostic tests, diagnosis and treatment options for TIA with the patient including diet, exercise and medication management. The patient will have an echocardiogram with bubble to evaluate for intracardiac thrombus or PFO. The patient will have a 48 hour Holter monitor to evaluate for cardiac arrhythmia and pending those results long-term monitoring will be considered. The patient has been encouraged to follow a healthy diet such as the Mediterranean diet and to pursue a regular home exercise program for stroke prevention. The patient will continue aggressive management of stroke risk factors including things such as diabetes, hypertension and dyslipidemia. The patient will continue Lotrel, metoprolol and nifedipine for the treatment of hypertension. The patient will continue atorvastatin therapy for dyslipidemia. The patient will continue ASA 81 mg for stroke prevention. The signs and symptoms of stroke have been discussed with the patient and when to call 911 and present to the emergency department. We discussed further neuroimaging such as an MRI but this will not change our treatment plan so we are going to defer this for now. 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 Closed fracture of right hip with routine healin g 05/08/2021 Closed displaced comminuted fracture of left pat eren 09/28/2020 Cervicalgia 04/03/2014 Osteoporosis, senile 05/10/2013 Esophageal reflux 06/10/2012 Hypercholesterolemia 06/10/2012 Hypertension 06/10/2012 Resolved Problems Problem Noted Date Diagnosed Date Resolved Date Pneumonia 07/24/2022 11/26/2022 Frequent falls 07/24/2021 11/26/2022 Encounters Date Type Department Care Team Description 06/28/2025 Scan [facility] Scanned, Doc Med Group Lab (SCAN) 06/05/2025 11:40 AM CDT Office Visit [facility] Family & Internal Medicine [address] [address] Susie Jauregui MD Follow Up (6 month ); Pneumonia (Follow up-hospitalized in April) 06/05/2025 Travel from Last 3 Months Immunizations Immunization Administration Dates Next Due Fluzone High Dose (IIV, triv alent, 0.5mL) 12/06/2024 Fluzone High Dose - >Age 65 (Prefilled Syringe) 12/02/2023,08/23/2022,08/31/2019,2017,07/25/2017,09/17/2016,08/22/2015 Influenza (Generic) 09/05/2014,09/02/2011 Influenza Adult (Generic) 09/03/2020,07/2018,07/26/2017,2015,08/22/2015 MODERNA COVID-19 (12+) MRNA, LNP-S, PF, 100 MCG/ 0.5 ML DOSE 03/06/2021,02/06/2021 MODERNA COVID-19 (OVEN HEATER HELPER FIORELLA ANDERSON), MRNA, LNP-S, PF, 50 MCG/ 0.25 ML DOSE 01/07/2022 Pneumococcal (Pneumovax 23) 09/03/2020, 4 Pneumococcal (Prevnar 13) 08/22/2015 Shingrix 09/11/2018,05/11/2018 Zoster (Zostavax) 44011 Unt/0.65Ml 10/22/2012 Family History Medical History Relation Comments Diabetes Daughter Anxiety Other Cancer Other breast cancer Depression Other Diabetes Other Hyperlipidemia Other Hypertension Other Diabetes Sister Relation Status Comments Daughter Other Sister Social History Tobacco Use Types Packs/Day Years Used Date Smoking Tobacco: Never Passive Smoke Exposure: Past Smokeless Tobacco: Never Tobacco Cessation:Counseling Given: Not Answered Alcohol Use Standard Drinks/Week Comments No 0 (1 standard drink = 0.6 oz pur e alcohol) AUDIT-C Answer Date Recorded Frequency of Alcohol Consumption Never 10/06/2018 Average Number of Drinks Not on file 018 Frequency of Binge Drinking Not on file 09/23 PHQ-2 Answer Date Recorded Patient Health Questionnaire-2 Score 0 12/06/2024 Comments No Sex and Gender Information Value Date Recorded Sex Assigned at Female 12/06/2024 9:54 AM SUBJECT SCIENTIFIC RESEARCH Legal Sex Female 10:23 PM SUBJECT SCIENTIFIC RESEARCH Gender Identity Not on file Sexual Orientation Not on file Last Filed Vital Signs Vital Sign Reading Time Taken Comments Blood Pressure 138/80 06/05/2025 11:43 AM CDT Pulse 58 06/05/2025 11:43 AM CDT Temperature 36.3 C (97.3 F) 12/06/2024 10:13 AM SUBJECT SCIENTIFIC RESEARCH Respiratory Rate 18 06/02/2024 10:33 AM CDT Oxygen Saturation 96% 06/05/2025 11:43 AM CDT Inhaled Oxygen Concentration - - Weight 64 kg (141 lb) 06/05/2025 11:43 AM CDT Height 157.5 cm (5' 2) 06/05/2025 11:43 AM CDT Body Mass Index 25.79 06/05/2025 11:43 AM CDT Plan of Treatment Upcoming Encounters Date Type Department Care Team (Late st Contact Info) Description 09/25/2025 2:00 PM SUBJECT SCIENTIFIC RESEARCH Office Visit [facility] [address] [place] [address] Herbert Guillermo MD [address] [place] [address] 12/06/2025 11:00 AM SUBJECT SCIENTIFIC RESEARCH Office Visit [facility] Family & Internal Medicine - [place] [address] [place] [phone] Susie Jauregui MD [address] [place] [id number] Health Maintenance Due Date Last Done Comments DTaP, Tdap and Td Vaccines (1 - Tdap) 1954 RSV Immunization or 60+ Years (1 - 1-dose 75+ series) 2012 Annual Medicare Wellness Visit 02/14/2022 02/13/2021 COVID-19 Vaccine ( season) 2025 01/07/2022, 03/06/2021, 02/06/2021 Influenza Adult (#1) 2025 12/06/2024, 12/02/2023, 08/23/2022, Additional history exists Zoster Vaccines Completed 09/11/2018, 04/23, 10/22/2012 Pneumococcal Vaccine: 50+ Years Completed 09/03/2020, 08/22/2015, 06/10/2004 PHQ-2 (Physician [place]) Completed 12/06/2024 Meningococcal B Vaccine Aged Out No l onger eligible based on patient's age to complete this topic Meningococcal Vaccine Aged Out No munira sydnie eligible based on patient's age to complete this topic RSV Immunizations Under 20 Months Aged Out No longer eligible based on patient's age to complete this topic Procedures Procedure Name Priority Date/Time Associated Diagnosis Comments OUTSIDE LAB (SCAN ORDER) 06/28/2025 from Last 3 Months Results * OUTSIDE LAB (SCAN ORDER) (06/28/2025) 06/28/2025 us Doc Med Group Scanned SCANNING Final Resu lt from Last 3 Months Insurance MEDICARE [employer] Advance Directives * Full Code (Latest Code Status on File) Date Activated Date Inactivated Comments 07/24/2022 10:18 PM 08/11/2022 2:32 PM Care Teams Grab Setter Relationship Specialty Start Date End Date Susie Jauregui MD [address] [facility] [place] [id number] PCP - General GERIATRICS 03/31/18 Herbert Guillermo MD [address] [facility] [place] [phone] CARDIOVASCULAR DISEASE 08/04/22
--- OUTSIDE RECORDS SUMMARY | 2025-09-04 21:09 | XMS_ITS | Clinical Summary ---
Author Organization [facility] Address [address] [place] [address] Phone Care Team Providers Care Flight Attendant Name Role Phone Susie Jauregui MD Primary [...] Comments Blood Pressure 169/74 11/21/2022 12:50 PM INCOME TAX INVESTIGATOR Pulse 73 11/21/2022 12:50 PM INCOME TAX INVESTIGATOR Temperature 36.3 C (97.3 F) 11/21/2022 12:50 PM INCOME TAX INVESTIGATOR Respiratory Rate 16 11/21/2022 12:50 PM INCOME TAX INVESTIGATOR Oxygen Saturation 93% 11/21/2022 12:50 PM INCOME TAX INVESTIGATOR Inhaled Oxygen Concentration - - Weight 61.2 kg (135 lb) 11/21/2022 9:00 AM INCOME TAX INVESTIGATOR Height 157.5 cm (5' 2) 11/21/2022 9:00 AM INCOME TAX INVESTIGATOR Body Mass Index 24.69 11/21/2022 9:00 AM INCOME TAX INVESTIGATOR Plan of Treatment Health Maintenance Due Date Last Done Comments DEXA Bone Density 1935 Hepatitis C Virus (HCV) Screening 1935 TdaP Immunization 1935 Respiratory Syncytial Virus (RSV) Immunization (Adult) (1 - 1-dose 75+ series) 2012 Influenza Immunization (#1) 07/24/202511/23, 08/23/2022, 09/03/2020, Additional history exists SARS-COV-2 Immunization ( season) 2025 01/07/2022, 01/07/2022, 03/06/2021, Additional history exists Zoster Immunization Completed 09/11/2018, 05/11/2018, 10/22/2012 Pneumococcal Immunization (50+ years) Completed 09/03/2020, 08/22/2015, 06/10/2004 Pneumococcal Immunization Combined Discontinued 09/03/2020, 08/22/2015, 06/10/2004 Medicare Initial AWV [id number] Completed 02/13/2021 Hepatitis B Immunization Aged Out No longer eligible based on patient's age to complete this topic Human Papillomavirus (HPV) Immunization Aged Out No longer eligible based on patient's age to complete this topic Meningococcal Immunization (ACWY) Aged Out No longer eligible based on patient's age to complete this topic Rotavirus Immunization Aged Out No lo nger eligible based on patient's age to complete this topic Medical Devices Implanted Type Area Commutator Tester Device Identifier Shelf Expiration Date Model / Serial / Lot Cement Biomet - [id number] Implanted:Qty: 1 on 05/08/2021 by Iam White MD at [facility] IMPLANT Right: Hip [employer] 07/23/2025 [id number] / / [id number] Cement Biomet - [id number] Implanted:Qty: 1 on 05/08/2021 by Iam White MD at [facility] IMPLANT Right: Hip [employer] 08/22/2025 [id number] / / [id number] Osteon[employer] Univ Distal Spacer [id number] - [id number] Implanted:Qty: 1 on 05/08/2021 by Iam White MD at [facility] IMPLANT Right: Hip SEBASTIAN VALERIA 04/17/2026 [id number] / / [id number] [facility] Cement Restrict [id number] - [id number] Implanted:Qty: 1 on 05/08/2021 by Iam White MD at [facility] IMPLANT Right: Hip SEBASTIAN [facility] 01/11/2026 [id number] / / [id number] Uhr Bipolar [id number] - [id number] Implanted:Qty: 1 on 05/08/2021 by Iam White MD at [facility] IMPLANT Right: Hip SEBASTIAN [facility] 01/28/2026 [id number] / / [id number] 1.8mm Threaded Im Nail Implanted:Qty: 1 on 11/21/2022 by Clarence Cadet DO at [facility] IMPLANT Right: Hand [employer] IMN1.8-35T / / UNKNOWN 1.8mm Threaded Im Nail Implanted:Qty: 1 on 11/21/2022 by Clarence Cadet DO at [facility] IMPLANT Right: Hand [employer] IMN1.8-30T / / UNKNOWN 2.1mm Threaded Im Nail Implanted:Qty: 1 on 11/21/2022 by Clarence Cadet DO at [facility] IMPLANT Right: Hand [employer] IMN2.1-40T / / UNKNOWN Accolade C 127 Degree Cemented Hip Stem Implanted:Qty: 1 on 05/08/2021 by Iam White MD at [facility] Right: Hip 10/21/2023 [id number] / / [id number] [place] Lfit V40 Femoral Head Implanted:Qty: 1 on 05/08/2021 by Iam White MD at [facility] Right: Hip 03/11/2026 [id number] / / [id number] Explanted Type Area Commutator Tester Device Identifier Shelf Expiration Date Model / Serial / Lot Cristopher Arnold Threaded - [id number] Explanted:Qty: 1 on 05/08/2021 by Iam White MD at [facility] IMPLANT Right: Hip [employer] [id number] / / [id number] 0.9mm K-Wire Explanted:Qty: 2 on 11/21/2022 at [facility] IMPLANT Right: Hand [employer] WIRE-0.9/120 / / UNKNOWN Insurance MEDICARE [employer] GENERIC Care Teams Flight Attendant Relationship Specialty Start Date End Date Susie Jauregui MD [address] [place] [address] PCP - General Geriatric Medicine 08/26/18
--- OUTSIDE RECORDS SUMMARY | 2025-09-04 21:09 | XMS_ITS | Encounter Summary ---
Author Organization [facility] Address [address] [place] [address] Phone Care Team Providers Care Special Education Instructor Name Role Phone Susie Jauregui MD Primary Care Provider [phone] Encounter Details Date Type Department Care Team (Late st Contact Info) Description 05/15/2021 Lab Requisition [facility] Laboratory Services [address] [place] [address] Justin Carlson MD [address] [facility] [address] [place] [address] Fracture of unspecified part of [...] initial encounter for closed fracture (HCC) [facility] 05/15/2021 6:20 AM CDT Fracture of unspecified part of neck of right femur, initial encounter for closed fracture (HCC) documented in this encounter Results * (ABNORMAL) ALBUMIN (05/15/2021 6:20 AM CDT) ALBUMIN 2.7(L) 3.4 - 4.8 g/dL 05/15/2021 8:31 AM CDT [facility] Blood Venipuncture / Unknown 05/15/2021 6:20 AM CDT 05/15/2021 7:11 AM CDT us Justin Carlson MD CHEMISTRY ORDERABLES Final Re sult [place] [id number] [place] [address] * ADJUSTED CALCIUM*[facility] (05/15/2021 6:20 AM CDT) ADJUSTED CALCIUM 9.2 8.8 - 10.0 mg/dL 05/15/2021 8:32 AM CDT [facility] Blood Venipuncture / Unknown 05/15/2021 6:20 AM CDT 05/15/2021 7:11 AM CDT us Justin Carlson MD CHEMISTRY ORDERABLES Final Re sult [facility] [address] [place] [address] * (ABNORMAL) CBC WITH AUTO DIFFERENTIAL (05/15/2021 6:20 AM CDT) WBC 6.12 3.90 - 11.00 10(3)/mcL 05/15/2021 8:08 AM [facility] RBC 3.04(L) 3.80 - 5.20 10(6)/mcL 05/15/2021 8:08 AM [facility] HEMOGLOBIN (HGB) 9.4(L) 11.7 - 16.0 g/dL 05/15/2021 8:08 AM [facility] HEMATOCRIT (HCT) 30.2(L) 34.9 - 46.9 % 05/15/2021 8:08 AM [facility] MCV 99.3 80.0 - 100.0 fL 05/15/2021 8:08 AM [facility] MCH 30.9 26.5 - 33.9 pg 05/15/2021 8:08 AM [facility] MCHC 31.1(L) 31.5 - 36.0 g/dL 05/15/2021 8:08 AM [facility] PLATELET COUNT 362 140 - 445 10(3)/mcL 05/15/2021 8:08 AM [facility] MPV 9.7 >=0.0 fL 05/15/2021 8:08 AM [facility] RDW 13.9 12.0 - 15.0 % 05/15/2021 8:08 AM [facility] NEUTROPHILS 65.7 % 05/15/2021 8:08 AM [facility] LYMPHOCYTES 20.4 % 05/15/2021 8:08 AM [facility] MONOCYTES 10.5 % 05/15/2021 8:08 AM [facility] EOSINOPHILS 1.3 % 05/15/2021 8:08 AM [facility] IMMATURE GRANULOCYTE % 1.1 % 05/15/2021 8:08 AM [facility] BASOPHILS 1.0 % 05/15/2021 8:08 AM [facility] ABSOLUTE NEUTROPHILS 4.02 1.40 - 7.30 10(3)/[facility] 05/15/2021 8:08 AM [facility] ABSOLUTE LYMPHOCYTES 1.25(L) 1.30 - 2.90 10(3)/[facility] 05/15/2021 8:08 AM [facility] ABSOLUTE MONOCYTES 0.64 0.10 - 0.80 10(3)/[facility] 05/15/2021 8:08 AM [facility] ABSOLUTE EOSINOPHIL 0.08 0.00 - 0.30 10(3)/[facility] 05/15/2021 8:08 AM [facility] ABSOLUTE BASOPHILS 0.06 0.00 - 0.10 10(3)/[facility] 05/15/2021 8:08 AM [facility] ABSOLUTE IMMATURE GRANULOCYTE 0.07 0.00 - 0.10 10 (3) mcL. 05/15/2021 8:08 AM [facility] NRBC PER 100 WBC 0.0 0.0 - 0.0 % 05/15/2021 8:08 AM [facility] ABSOLUTE NRBC 0.00 10 (3) mcL. 05/15/2021 8:08 AM [facility] Blood Venipuncture / Unknown 05/15/2021 6:20 AM CDT 05/15/2021 7:11 AM CDT us Justin Carlson MD HEMATOLOGY ORDERABLES Final R esult [facility] [address] [place] [address] * (ABNORMAL) BASIC METABOLIC PANEL W/ CALCIUM TOTAL (05/15/2021 6:20 AM CDT) SODIUM 140 133 - 145 mmol/L 05/15/2021 8:22 AM [facility] POTASSIUM 4.0 3.5 - 5.1 mmol/L 05/15/2021 8:22 AM [facility] CHLORIDE 105 96 - 108 mmol/L 05/15/2021 8:22 AM [facility] CO2, VENOUS 29 21 - 32 mmol/L 05/15/2021 8:22 AM [facility] ANION GAP 10.0 10.0 - 20.0 mmol/L 05/15/2021 8:22 AM [facility] GLUCOSE 91 83 - 110 mg/dL 05/15/2021 8:22 AM [facility] BUN 11 6 - 19 mg/dL 05/15/2021 8:22 AM [facility] CREATININE, BLOOD 0.60 0.40 - 1.10 mg/dL 05/15/2021 8:22 AM [facility] BUN/CREATININE RATIO 18 12 - 20 ratio 05/15/2021 8:22 AM [facility] CALCIUM 8.2(L) 8.8 - 10.0 mg/dL 05/15/2021 8:22 AM [facility] Comment:Calcium low. Correct ed calcium to follow. Blood Venipuncture / Unknown 05/15/2021 6:20 AM CDT 05/15/2021 7:11 AM CDT us Justin Carlson MD CHEMISTRY ORDERABLES Final Re sult [facility] [address] [place] [id number] documented in this encounter Visit Diagnoses Diagnosis Fracture of unspecified part of neck of right femur, initial encounter for closed fracture documented in this encounter Additional Health Concerns Assessment Noted Time PHQ-9 Depression Total Score: 0 05/08/20 21 1:15 AM CDT documented as of this encounter Care Teams Special Education Instructor Relationship Specialty Start Date End Date Susie Jauregui MD [address] [place] [address] PCP - General Geriatric Medicine 08/26/18 documented as of this encounter
--- OUTSIDE RECORDS SUMMARY | 2025-09-04 21:09 | XMS_ITS | Encounter Summary ---
Author Organization [facility] Address [address] [place] [address] Phone Care Team Providers Care Complaint Evaluation Supervisor Name Role Phone Susie Jauregui MD Primary Care Provider Encounter Details Date Type Department Care Team (Late st Contact Info) Description 06/18/2021 Lab Requisition [facility] Laboratory Services [address] [place] [address] Abelino David MD [address] [place], [place] [id number] Essential (primary) hypertension; Urinary tract infection, site [...] Procedure Name Priority Date/Time Associated Diagnosis Comments C-REACTIVE PROTEIN, HST Routine 06/18/2021 6:41 AM CDT Essential (primary) [...] 3.90 - 11.00 10(3)/mcL 06/18/2021 9:09 AM [facility] RBC 3.32(L) 3.80 - 5.20 10(6)/mcL 06/18/2021 9:09 AM [facility] HEMOGLOBIN (HGB) 10.0(L) 11.7 - 16.0 g/dL 06/18/2021 9:09 AM [facility] HEMATOCRIT (HCT) 32.9(L) 34.9 - 46.9 % 06/18/2021 9:09 AM [facility] MCV 99.1 80.0 - 100.0 fL 06/18/2021 9:09 AM [facility] MCH 30.1 26.5 - 33.9 pg 06/18/2021 9:09 AM [facility] MCHC 30.4(L) 31.5 - 36.0 g/dL 06/18/2021 9:09 AM [facility] PLATELET COUNT 311 140 - 445 10(3)/mcL 06/18/2021 9:09 AM [facility] MPV 9.5 >=0.0 fL 06/18/2021 9:09 AM [facility] RDW 14.2 12.0 - 15.0 % 06/18/2021 9:09 AM [facility] NEUTROPHILS 52.7 % 06/18/2021 9:09 AM [facility] LYMPHOCYTES 34.1 % 06/18/2021 9:09 AM [facility] MONOCYTES 10.8 % 06/18/2021 9:09 AM [facility] EOSINOPHILS 1.3 % 06/18/2021 9:09 AM [facility] IMMATURE GRANULOCYTE % 0.2 % 06/18/2021 9:09 AM [facility] BASOPHILS 0.9 % 06/18/2021 9:09 AM [facility] ABSOLUTE NEUTROPHILS 2.35 1.40 - 7.30 10(3)/[facility] 06/18/2021 9:09 AM [facility] ABSOLUTE LYMPHOCYTES 1.52 1.30 - 2.90 10(3)/[facility] 06/18/2021 9:09 AM [facility] ABSOLUTE MONOCYTES 0.48 0.10 - 0.80 10(3)/[facility] 06/18/2021 9:09 AM [facility] ABSOLUTE EOSINOPHIL 0.06 0.00 - 0.30 10(3)/[facility] 06/18/2021 9:09 AM [facility] ABSOLUTE BASOPHILS 0.04 0.00 - 0.10 10(3)/[facility] 06/18/2021 9:09 AM [facility] ABSOLUTE IMMATURE GRANULOCYTE 0.01 0.00 - 0.10 10 (3) mcL. 06/18/2021 9:09 AM [facility] NRBC PER 100 WBC 0.0 0.0 - 0.0 % 06/18/2021 9:09 AM [facility] ABSOLUTE NRBC 0.00 10 (3) mcL. 06/18/2021 9:09 AM [facility] Blood Venipuncture / Unknown 06/18/2021 6:41 AM CDT 06/18/2021 8:04 AM CDT us Abelino David MD HEMATOLOGY ORDERABLES Final Re sult [facility] [address] [place] [address] * (ABNORMAL) CMP (COMPREHENSIVE METABOLIC PANEL) (06/18/2021 6:41 AM CDT) SODIUM 142 133 - 145 mmol/L 06/18/2021 9:25 AM [facility] POTASSIUM 4.1 3.5 - 5.1 mmol/L 06/18/2021 9:25 AM [facility] CHLORIDE 106 96 - 108 mmol/L 06/18/2021 9:25 AM [facility] CO2, VENOUS 30 21 - 32 mmol/L 06/18/2021 9:25 AM [facility] ANION GAP 10.1 10.0 - 20.0 mmol/L 06/18/2021 9:25 AM [facility] GLUCOSE 97 83 - 110 mg/dL 06/18/2021 9:25 AM [facility] BUN 11 6 - 19 mg/dL 06/18/2021 9:25 AM [facility] CREATININE, BLOOD 0.70 0.40 - 1.10 mg/dL 06/18/2021 9:25 AM [facility] BUN/CREATININE RATIO 16 12 - 20 ratio 06/18/2021 9:25 AM [facility] TOTAL PROTEIN 6.0 6.0 - 8.2 g/dL 06/18/2021 9:25 AM [facility] ALBUMIN 3.3(L) 3.4 - 4.8 g/dL 06/18/2021 9:25 AM [facility] CALCIUM 8.8 8.8 - 10.0 mg/dL 06/18/2021 9:25 AM [facility] T BILI 0.3 0.0 - 1.0 mg/dL 06/18/2021 9:25 AM [facility] SGOT (AST) 16 0 - 37 U/L 06/18/2021 9:25 AM [facility] SGPT (ALT) 22 12 - 45 U/L 06/18/2021 9:25 AM [facility] ALKALINE PHOSPHATASE 64 39 - 117 U/L 06/18/2021 9:25 AM [facility] GFR, EST. NONAFRICAN >60 06/18/2021 9:25 AM [facility] Comment: Reference interval for MDRD GFR: GFR >=60: Satisfactory kidney function GFR <60: Chronic kidney disease GFR <15: Kidney failure Estimated GFR may be less reliable in patients >70yr, women, patients with serious comorbid conditions, or patients with extremes of body size, muscle mass, or nutritional status. Revised 02/16/08 (National Kidney Disease Education Program) GFR, EST. >60 >=60 021 9:25 AM [facility] Comment: Reference interval for MDRD GFR: GFR [...] 06/18/2021 6:41 AM CDT 06/18/2021 8:[address] [facility] - 06/18/2021 9:25 AM [facility] Venipuncture should occur prior to sulfasalazine and/or sulfapyridine administration due to the potential for falsely depressed results for ALT and AST. Glucose can be falsely depressed after administration of sulfasalazine, and falsely elevated with administration of sulfapyridine. us Abelino David MD CHEMISTRY ORDERABLES Final Res ult [facility] [address] [place] [address] * CRP, DMH (06/18/2021 6:41 AM CDT) C-REACITVE PROTEIN <2.9 0.0 - 5.0 mg/L 06/18/2021 9:25 AM [facility] Blood Venipuncture / Unknown 06/18/2021 6:41 AM CDT 06/18/2021 8:04 AM CDT us Abelino David MD CHEMISTRY ORDERABLES Final Res ult [facility] [address] [place] [address] documented in this encounter Visit Diagnoses Diagnosis Essential (primary) hypertension Unspecified essential hypertension Urinary tract infection, site not specified documented in this encounter Additional Health Concerns Assessment Noted Time PHQ-9 Depression Total Score: 0 06/05/20 21 9:00 AM CDT documented as of this encounter Care Teams Complaint Evaluation Supervisor Relationship Specialty Start Date End Date Susie Jauregui MD [address] [place] [address] PCP - General Geriatric Medicine 08/26/18 documented as of this encounter
[2025-09-04] MEDS: SODIUM CHLORIDE 0.9% IV 1,000 ML 999 ML IV CONT (21:18)
[2025-09-04 21:48] LABS: Alanine Aminotransferase 14 U/L (6-35); Albumin Level 4.5 g/dL (3.5-5.1); Alkaline Phosphatase 58 U/L (38-126); Anion Gap 8 mmol/L (4-12); Aspartate Amino Transferase 31 U/L (14-36); Bilirubin,Total 0.4 mg/dL (0.2-1.3); Blood Urea Nitrogen 27 mg/dL (7-17); Calcium 9.4 mg/dL (8.4-10.2); Carbon Dioxide 29 mmol/L (22-30); Chloride 99 mmol/L (98-107); Estimated CRCL calculation 25 ml/min; Estimated Glomerular Filt Rate 40; Glucose 114 mg/dL (65-110); Osmolality Calculated 288 mOsm/kg (285-295); Potassium 4.1 mmol/L (3.4-5.0); Sodium 136 mmol/L (137-145); Total Protein 8.0 g/dL (6.3-8.2)
[2025-09-04 21:53] LABS: Hematocrit 30.5 % (35.0-42.0); Hemoglobin 9.9 g/dL (11.7-13.8); Immature Granulocyte Percent A 0.4 % (0.0-0.0); Lymphocytes Absolute Auto 1.91 K/mm3 (1.10-4.50); Mean Corpuscular HGB Conc 32.5 g/dL (32-36); Mean Corpuscular Hemoglobin 34.5 pg (27.0-31.0); Mean Corpuscular Volume 106.3 fL (78.0-102.0); Nucleated Red Blood Cells Absolute Auto 0.00 K/mm3 (0.00-0.00); Nucleated Red Blood Cells Perc 0.0 % (0-0.0); Platelet Count Result 238 K/mm3 (150-420); Red Blood Count 2.87 M/mm3 (4.20-5.40); White Blood Count 5.1 K/mm3 (4.8-10.8)
[2025-09-04 21:59] LABS: Troponin I < 0.012 ng/mL (0.000-0.034)
--- NOTE | 2025-09-04 22:00 | PC.NURSE ---
C-collar removed per ERP order, CT neck and head all negative.
[2025-09-04 22:01] LABS: Add Urine Microscopic? YES; Appearance Urine Clear (Clear); Glucose Urine UA Negative (Negative); Leukocyte Esterase Ur Negative LEU/UL (Negative); Nitrate Urine Positive (Negative); Specific Grav Ur 1.015 (1.010-1.020)
[2025-09-04] MEDS: CIPROFLOXACIN 500 MG TAB PO (22:47)
[2025-09-04 23:00] VITALS: BP 140/85; PULSE 74; RESP 18; TEMP 36.6; O2SAT 97
--- NOTE | 2025-09-07 12:22 | PC.NURSE ---
PRELIMINARY URINE CULTURE REPORT; GRAM NEGATIVE BACILLI ISOLATED, WILL WAIT FOR FURTHER CULTURE AND SENSITIVITY.
--- NOTE | 2025-09-08 12:55 | PC.NURSE ---
FINAL URINE CULTURE REPORT; ESCHERICHIA COLI, PATIENT DISCHARGED ON CIPRO, CULTURE SUSCEPTIBLE. NO FURTHER ACTION OR TREATMENT NEEDED PER ERP
--- NOTE | 2025-09-09 13:29 | PC.NURSE ---
preliminary blood cultures x2 reviewed. no growth in 48 hours.
--- NOTE | 2025-09-12 12:46 | PC.NURSE ---
FINAL BLOOD CULTURE REPORT; NO GROWTH IN 5 DAYS.
== END 2025-09-04 23:03 | disposition home or self-care (01) ==
PROVIDERS: Emergency Provider Emergency Medicine
DX: S09.90XA Unspecified injury of head, initial encounter (principal); N39.0 Urinary tract infection, site not specified; I10 Essential (primary) hypertension; W01.0XXA Fall on same level from slipping, tripping and stumbling without subsequent striking against object, initial encounter
CPT/HCPCS: 36415; 70450; 71045; 72125; 80053; 81001; 83605; 84484; 85025; 87040; 87086; 87186; 93005; 96360; 99284; A9270; J7030

== ENCOUNTER 2025-09-18 08:50 | Emergency (ER) | payer MEDICARE, OTHER, SELFPAY ==
[2025-09-18] VITALS (19 sets, daily range): BP systolic 144–181; BP diastolic 61–116; PULSE 51–58; RESP 11–20; TEMP 36.5; O2SAT 95–99
--- NOTE | ~2025-09-18 | CT_ITS ---
EXAMINATION: CT brain wo con, 09/18/2025 9:05 CDT HISTORY: Trauma, fell and hit head COMPARISON: Comparison 09/04/2025. Technique: Axial images obtained of the brain without contrast. One or more of the following dose reduction techniques were used: automated exposure control, adjustment of the mA and/or kV according to patient size, use of iterative reconstruction technique. Findings: There is a trace midline focus of subdural hemorrhage abutting the falx on the left side extending anteriorly and posteriorly in transverse diameter measuring 2 mm. There is no parenchymal hemorrhage or infarct identified. There is a small focus of intraventricular hemorrhage suspected in the left temporal horn measuring 4 x 5 mm with trace hemorrhage suspected in the posterior aspect of the left occipital horn. Mastoid air cells unremarkable. Sinuses and orbits unremarkable. No acute fracture. Posterior subcutaneous soft tissue swelling. Impression: 1. Midline focus of subdural hemorrhage detailed above. Small posterior left- sided intraventricular hemorrhage. No midline shift. Results discussed with the referring clinician immediately Reviewed, dictated and finalized at location P. Impression: 1. Midline focus of subdural hemorrhage detailed above. Small posterior left-si ded intraventricular hemorrhage. No midline shift. Results discussed with the referring clinician immediately
--- NOTE | ~2025-09-18 | XR_ITS ---
Examination: XR chest 1V portable Clinical History: FREQUENT FALLS Comparison: 09/04/2025 Technique: Portable AP Findings: Heart size normal. Lungs clear. No acute bony abnormality. IMPRESSION: 1. No acute cardiopulmonary findings given portable technique. Reviewed, dictated and finalized at location R.
--- NOTE | ~2025-09-18 | CT_ITS ---
CT CERVICAL SPINE WITHOUT CONTRAST CLINICAL HISTORY: Trauma, GLF Technique: Axial images thoracic inlet to skull base Sagittal and coronal reformats. No contrast CT images acquired with automatic exposure control for dose reduction DLP: 150 mGy-cm Comparison: None Findings: No acute fracture. Grade 1 anterolisthesis of C4 on 5, C6 on C7. Vertebral bodies normal height and alignment. Moderate degenerative changes. Disc spaces maintained. Prevertebral soft tissues within normal limits. Visualized lung apices: Clear. Visualized thyroid: Unremarkable. No enlarged cervical nodes. IMPRESSION: 1. No acute findings. Reviewed, dictated and finalized at location R. IMPRESSION: 1. No acute findings.
--- NOTE | 2025-09-18 09:00 | ECG_ITS ---
Test Date: 2025-09-18 09:20:58 Measurements Intervals Verdi Rate: 51 P: 163 NJ: 137 QRS: 189 QRSD: 101 T: 203 QT: 470 QTc: 436 Interpretive Statements SINUS BRADYCARDIA LIMB LEAD REVERSAL NONSPECIFIC ST & T-WAVE ABNORMALITY- ANTEROLAT/INF LEADS BASELINE ARTIFACT- I, II, III, AVR, AVL, AVF, V1-V6 BORDERLINE ECG Compared to ECG 09/04/2025 21:18:34 NO SIGNIFICANT CHANGE Electronically Signed On 09-18-2025 09:48:12 CDT by Thomas Coates D.O.
--- NOTE | 2025-09-18 09:09 | ED.FALL ---
HPI - Fall General Chief Complaint: Fall Stated Complaint: posterior head pain s/p fall Time Seen by Provider: 09/18/25 08:53 Source: patient and EMS Mode of arrival: EMS Limitations: no limitations History of Present Illness HPI Narrative: This is a very pleasant 89-year-old female patient with past medical history significant for hyperlipidemia, congestive heart failure, pneumonia, hypertension and frequent falls he resides at home with her grandson who sustained a ground level fall this morning. Patient screens and states he noted a loud thud,came around the corner and found his grandmother to be leading the ground. Patient reportedly hit the back of her head. There was no noted LOC, however patient's grandson notes that she was mildly confused for a brief amount of time. Upon arrival by EMS patient was alert, oriented and opted to come be checked out with complaints of having posterior scalp pain. Patient denies any prodromal symptoms prior to the fall of chest pain, dyspnea, dizziness, lightheadedness. She does report some posterior head pain. No nausea/vomiting. She denies any deficits of Dr. Range of motion to the extremity she denies any change in vision. She is not on any blood thinning medications with exception of a baby aspirin daily. It is noted the patient did just have a urinary tract infection and finished her antibiotics 2 days ago. She is alert and oriented x4 upon arrival without complaint except head pain. No exacerbating or alleviating factors to this point. Onset (ago): hour(s) (2) Fall from: standing Fall witnessed: yes, by family Place fall occurred: home Loss of consciousness: none Prolonged down time: no Symptoms prior to fall: none Context: history of frequent falls Location of injury: head Severity: mild Severity scale (1-10): 2 Associated symptoms (after fall): denies Related Data Home Medications ?Medication ?Instructions ?Recorded ?Confirmed ?Last Taken ?Type atorvastatin 20 mg tablet 20 mg PO DAILY 04/15/25 04/15/25 04/15/25 08:00 History 20 mg dexlansoprazole 60 mg 60 mg PO DAILY 04/15/25 04/15/25 04/15/25 08:00 History capsule,biphase delayed release 60 mg diclofenac sodium 1 % topical gel 2 g topical QID 04/15/25 04/15/25 04/15/25 08:00 History 2 g folic acid 1 mg tablet 1 mg PO DAILY 04/15/25 04/15/25 04/15/25 08:00 History 1 mg magnesium oxide 250 mg PO DAILY 04/15/25 04/15/25 04/14/25 19:00 History 250 mg metoprolol tartrate 100 mg tablet 100 mg PO Q12H 04/15/25 04/15/25 04/15/25 08:00 History 100 mg primidone 50 mg tablet 50 mg PO HS 04/15/25 04/15/25 04/14/25 19:00 History 50 mg sulfasalazine 500 mg tablet 1,500 mg PO BID 04/15/25 04/15/25 04/15/25 08:00 History 1,500 mg venlafaxine 75 mg capsule,extended 75 mg PO DAILY 04/15/25 04/15/25 04/15/25 08:00 History release 24 hr 75 mg Allergies Allergy/AdvReac Type Severity Reaction Status Date / Time codeine Allergy Unknown Unknown Verified 09/04/25 20:34 Tetanus Vaccines and Toxoid Allergy Unknown Unknown Verified 09/04/25 20:34 Review of Systems Review of Systems: All systems reviewed & are unremarkable except as noted in HPI and below PMFSH Past Medical History Medical History HTN (hypertension) Social History Social History Smoking status: Never smoker Second hand tobacco smoke exposure: Yes Alcohol intake: never Substance use: never Substance use type: does not use Do You Feel Safe in your Home?: Yes Lack of Transportation: No Lack of Food: Never True Current Housing: I Have Housing Concerned About Future Housing: No Difficulty Paying Gas/Electric Bills: No Difficulty Paying for Meds: No Currently Unemployed: No Education: High School Diploma/GED Difficulty w/ Childcare or Family Care: No Spiritual care concerns: No Exam Const: General: healthy appearing, no acute distress and alert Nutritional Appearance: well nourished Orientation/consciousness: patient oriented x3 Limitations: no limitations HENMT: Head: normal to inspection, no contusions, no hematomas and no lacerations Ears: external ears normal and TM's normal bilaterally Face/Nose/Sinus: Normal external nose present Face and sinus: normal facial exam Mouth: Yes Normal oral and palatal mucosa present, Yes lip normal and Yes moist mucous membranes Teeth and gingiva: dentition normal Throat: posterior oropharynx normal Eyes: Conjunctivae: conjunctivae normal Pupils: Equal, round and reactive pupils present EOM: EOMs intact bilaterally Direct Ophthalmoscopy: no photophobia Neck: Other: Patient arrives in C-collar Chest: Chest palpation & inspection: normal inspection of the chest, no tenderness and No Pacemaker present Resp: Effort & Inspection: normal respiratory effort Auscultation: clear to auscultation bilaterally Cardio: Rate: bradycardic Rhythm: regular rhythm Heart sounds: no murmurs GI: Inspection: non-distended Auscultation: normal bowel sounds Back/Spine/Pelvis: Back: no CVA tenderness Cervical Spine: collar present Skin: General skin exam: normal color Rashes: no rashes Wounds: no wounds Neuro: General: patient oriented x3, moves all extremities, no meningeal signs and no focal motor deficits Cranial nerves: Yes Nystagmus not present Speech: normal speech Extrem: General: normal to inspection, no clubbing, cyanosis or edema and no pedal edema Other: Freely and equally moving all extremities well without deficit. Psych: Mental Status: mental status grossly normal Affect: normal affect Course Course Emergency Course: Patient arrived to room a via EMS. No acute distress noted upon arrival. Patient alert and oriented x4. Currently without any complaints of pain including head but stated it did hurt at 1st immediately after the fall. Patient has no other acute issues at this time. Differential diagnoses considered but not limited to: Intracranial hemorrhage, ground level fall, syncope, subarachnoid hemorrhage, fracture cervical spine, contusion scalp Workup was initiated with labs, imaging and EKG. EKG obtained demonstrates sinus bradycardia with 51 beats per minute and QRS of 101. When compared to recent EKG dated September 04, 2025 patient then was also sinus bradycardia at 52 beats per minute without ischemic changes and when compared with February of 2025 patient's heart rate was 62. I received a phone call from Clinical Radiology who advised patient does have a midline falx subdural hemorrhage involving falx on the left side both anteriorly and posteriorly that measures 2 mm maximum in diameter transverse. In addition she has an interventricular hemorrhage of the left temporal horn measuring 4 mm x 5 mm with trace 7 suspected in the posterior aspect of the left occipital horn. Discussed this with the patient her grandson who is bedside and using shared decision-making they are agreeable to transfer to a trauma facility at this time for expert neurological evaluation and trauma evaluation. Discussed with Dr. Aguilar trauma specialist at [facility] who accepts for transfer at this time for ER to ER. He patient hemodynamically stable at the time of transfer. Vital Signs Vital signs: Vital Signs Temperature 97.7 F 09/18/25 08:51 Pulse Rate 58 L 09/18/25 08:51 Respiratory Rate 20 09/18/25 08:51 Blood Pressure 169/67 H 09/18/25 08:51 Pulse Oximetry 96 09/18/25 08:51 Oxygen Delivery Room Air 09/18/25 08:51 Temperature 97.7 F 09/18/25 08:51 Pulse Rate 53 L 09/18/25 09:17 Respiratory Rate 15 09/18/25 09:02 Blood Pressure 155/70 H 09/18/25 09:01 Pulse Oximetry 77 L 09/18/25 09:17 Oxygen Delivery Room Air 09/18/25 08:51 MDM - Fall MDM Narrative Medical decision making narrative: See ED course Differential Diagnosis Differential diagnosis: Likely syncope, concussion without loss of consciousness and other Imaging Data Radiologist's impression: ITS Impressions Head CT 09/18/25 09:24 Impression: 1. Midline focus of subdural hemorrhage detailed above. Small posterior left-sided intraventricular hemorrhage. No midline shift. Results discussed with the referring clinician immediately Cervical Spine CT 09/18/25 09:29 IMPRESSION: 1. No acute findings. Critical Care Time Critical Care Time Critical Care Time: Yes Total Critical Care Time: 20 Discharge Plan Discharge Clinical Impression: Intracranial hemorrhage, Subdural hemorrhage, Ground-level fall, CHI (closed head injury) Patient Disposition: Acute Care Hospital Condition: Guarded Prognosis Patient Language: Cymraes Prescriptions: No Action ciprofloxacin HCl [Cipro] 500 mg tablet 500 mg PO BID 7 Days Qty: 14 0RF atorvastatin 20 mg tablet 20 mg PO DAILY dexlansoprazole 60 mg capsule,biphase delayed releas 60 mg PO DAILY diclofenac sodium 1 % gel 2 g topical QID Rx Instructions: apply to single elbow, wrist or hand; for hand includes palm/fingers/back of hand folic acid 1 mg tablet 1 mg PO DAILY primidone 50 mg tablet 50 mg PO HS venlafaxine 75 mg capsule,extended release 24hr 75 mg PO DAILY metoprolol tartrate 100 mg tablet 100 mg PO Q12H sulfasalazine 500 mg tablet 1,500 mg PO BID magnesium oxide 250 mg magnesium tablet 250 mg PO DAILY azithromycin [Zithromax] 250 mg Tablet 500 mg PO DAILY Qty: 6 0RF guaifenesin [Mucus Relief ER] 600 mg Tablet Extended Release 12hr 1,200 mg PO Q12HR Qty: 20 0RF nifedipine [Procardia XL] 60 mg tablet extended release 24hr 60 mg PO DAILY Qty: 60 0RF amoxicillin-pot clavulanate 875-125 mg tablet 1 tablet PO Q12H Qty: 8 0RF Follow-up/Referrals: Juventino,Susie [Other] Time of Disposition: 09:48 Quality Eran Coma Scale Eyes: Open Verbal: Oriented and Alert Motor: Follows Commands [place] Coma Total Score: 15
--- OUTSIDE RECORDS SUMMARY | 2025-09-18 10:11 | XMS_ITS | Encounter Summary ---
Author Organization [facility] Address [address] [place] [address] Phone Care Team Providers Care Freight Clerk Name Role Phone Susie Jauregui MD Primary Care Provider Encounter Details Date Type Department Care Team (Latest Contact Info) Description 09/28/2020 Transcribe Orders [facility] PERIOP [address] [place] [id number] Iam White MD Pre-op testing (Primary Dx) [...] COVID-19? No / Unsure 09/28/2020 8:52 AM RECREATION THERAPY TEACHER documented as of this encounter Functional Status * CAGE-Aid Total Score Answer Date of Assessment Author 0 10/01/2020 9:00 AM RECREATION THERAPY TEACHER David Hernandez RN documented as of this encounter Mental Status * CAGE-Aid Total Score Answer Entry Date Author 0 10/01/2020 9:00 AM David Giraldo RN documented in this encounter Plan of Treatment Not on file documented as of this encounter Results * (ABNORMAL) Urinalysis Microscopic If Indicated (09/29/2020 6:24 AM RECREATION THERAPY TEACHER) SPECIFIC GRAVITY 1.017 1.003 - 1.035 09/29/2020 6:58 AM [facility] URINE PH 5.5 5.0 - 8.0 09/29/2020 6:58 AM [facility] WBC ESTERASE 3+(A) Negative 09/29/2020 6:58 AM [facility] NITRITE Positive(A) Negative 09/29/2020 6:58 AM [facility] PROTEIN, RANDOM URINE Trace(A) Negative 09/29/2020 6:58 AM [facility] URINE GLUCOSE, QUAL Negative Negative 09/29/2020 6:58 AM [facility] URINE KETONES Negative Negative 09/29/2020 6:58 AM [facility] UROBILINOGEN <2.0 <2.0 mg/dL 09/29/2020 6:58 AM [facility] URINE BILIRUBIN Negative Negative 0 6:58 AM [facility] URINE BLOOD Trace(A) Negative douglas/ul 09/29/2020 6:58 AM [facility] URINALYSIS COLOR Yellow Yellow 09/29/2020 6:58 AM [facility] URINALYSIS CLARITY Hazy(A) Clear 09/29/2020 6:58 AM [facility] WBC (Urine) 51-150(A) 0-5, Negative /hpf 09/29/2020 6:58 AM [facility] URINE RBC'S 6-10(A) 0-5, Negative, None /hpf 09/29/2020 6:58 AM [facility] BACTERIA, URINE Many(A) None, Absent /hpf 09/29/2020 6:58 AM [facility] URINE MUCOUS Few None, Rare, Few 09/29/2020 6:58 AM [facility] URINE MICRO REQUIRED Yes 09/29/2020 6:58 AM [facility] URINE SQUAMOUS EPITHELIAL CELLS Large amount(A) Negative /HPF 09/29/2020 6:58 AM [facility] URINE HYALINE CASTS 2-5(A) Occasional /LPF 09/29/2020 6:58 AM RECREATION THERAPY TEACHER [facility] DMH RENAL EPI CELLS 09/29/2020 6:58 AM RECREATION THERAPY TEACHER [facility] URINE SPERM 09/29/2020 6:58 AM RECREATION THERAPY TEACHER [facility] URINE TRICHOMONAS 09/29/2020 6:58 AM RECREATION THERAPY TEACHER [facility] URINE YEAST 09/29/2020 6:58 AM RECREATION THERAPY TEACHER [facility] Urine URINE SPECIMEN COLLECTION, CLEAN CATCH / Unknown Non-Phlebotomy Collection / Unknown 09/29/2020 6:24 AM RECREATION THERAPY TEACHER 09/29/2020 6:44 AM RECREATION THERAPY TEACHER [facility] - 09/29/2020 6:58 AM RECREATION THERAPY TEACHER Urine culture has been ordered. Iam White MD URINE ORDERABLES Final Resu lt Performing Organization Address City/State/[facility] Co de Phone Number [facility] [address] [place] [address] documented in this encounter Visit Diagnoses Diagnosis Pre-op testing- Primary Preoperative examination, unspecified documented in this encounter Additional Health Concerns Infection Onset Date Last Indicated Resolved Time PUI 05/07/2021 05/07/2021 05/07/2021 9:27 PM CDT Assessment Noted Time PHQ-9 Depression Total Score: 0 09/28/20 20 9:00 AM RECREATION THERAPY TEACHER documented as of this encounter Care Teams Freight Clerk Relationship Specialty Start Date End Date Susie Jauregui MD [address] [place] [address] PCP - General Geriatric Medicine 08/26/18 documented as of this encounter
--- OUTSIDE RECORDS SUMMARY | 2025-09-18 10:11 | XMS_ITS | Encounter Summary ---
Author Organization [facility] Address [address] [place] [address] Phone Care Team Providers Care Senior Foreman Name Role Phone Susie Jauregui MD Primary Care Provider [phone] Encounter Details Date Type Department Care Team (Late st Contact Info) Description 05/15/[address] [facility] Laboratory Services [address] [place] [address] Justin Carlson MD [address] [place] [address] Fracture of unspecified part of [...] initial encounter for closed fracture (HCC) AD[facility]CI[facility] Routine 05/15/2021 6:20 AM CDT Fracture of unspecified part of neck of right femur, initial encounter for closed fracture (HCC) documented in this encounter Results * (ABNORMAL) ALBUMIN (05/15/2021 6:20 AM CDT) ALBUMIN 2.7(L) 3.4 - 4.8 g/dL 05/15/2021 8:[address] [facility] Blood Venipuncture / Unknown 05/15/2021 6:20 AM CDT 05/15/2021 7:11 AM CDT us Justin Carlson MD CHEMISTRY ORDERABLES Final Re sult [id number] [place] [address] * ADJUSTED CALCIUM*[facility] (05/15/2021 6:20 AM CDT) ADJUSTED CALCIUM 9.2 8.8 - 10.0 mg/dL 05/15/2021 8:[address] [facility] Blood Venipuncture / Unknown 05/15/2021 6:20 AM CDT 05/15/2021 7:11 AM CDT us Justin Carlson MD CHEMISTRY ORDERABLES Final Re sult [facility] [address] [place] [address] * (ABNORMAL) CBC WITH AUTO DIFFERENTIAL (05/15/2021 6:20 AM CDT) WBC 6.12 3.90 - 11.00 10(3)/mcL 05/15/2021 8:08 AM [facility] RBC 3.04(L) 3.80 - 5.20 10(6)/mcL 05/15/2021 8:08 AM [facility] HEMOGLOBIN (HGB) 9.4(L) 11.7 - 16.0 g/dL 05/15/2021 8:08 AM [facility] HEMATOCRIT (HCT) 30.2(L) 34.9 - 46.9 % 05/15/2021 8:08 AM [facility] MCV 99.3 80.0 - 100.0 fL 05/15/2021 8:08 AM [facility] MCH 30.9 26.5 - 33.9 pg 05/15/2021 8:08 AM [facility] MCHC 31.1(L) 31.5 - 36.0 g/dL 05/15/2021 8:08 AM [facility] PLATELET COUNT 362 140 - 445 10(3)/mcL 05/15/2021 8:08 AM [facility] MPV 9.7 >=0.0 fL 05/15/2021 8:08 AM [facility] RDW 13.9 12.0 - 15.0 % 05/15/2021 8:08 AM [facility] NEUTROPHILS 65.7 % 05/15/2021 8:08 AM [facility] LYMPHOCYTES 20.4 % 05/15/2021 8:08 AM [facility] MONOCYTES 10.5 % 05/15/2021 8:08 AM [facility] EOSINOPHILS 1.3 % 05/15/2021 8:08 AM [facility] IMMATURE GRANULOCYTE % 1.1 % 05/15/2021 8:08 AM [facility] BASOPHILS 1.0 % 05/15/2021 8:08 AM [facility] ABSOLUTE NEUTROPHILS 4.02 1.40 - 7.30 10(3)/[facility] 05/15/2021 8:08 AM [facility] ABSOLUTE LYMPHOCYTES 1.25(L) 1.30 - 2.90 10(3)/[facility] 05/15/2021 8:08 AM [facility] ABSOLUTE MONOCYTES 0.64 0.10 - 0.80 10(3)/[facility] 05/15/2021 8:08 AM [facility] ABSOLUTE EOSINOPHIL 0.08 0.00 - 0.30 10(3)/[facility] 05/15/2021 8:08 AM [facility] ABSOLUTE BASOPHILS 0.06 0.00 - 0.10 10(3)/[facility] 05/15/2021 8:08 AM [facility] ABSOLUTE IMMATURE GRANULOCYTE 0.07 0.00 - 0.10 10 (3) mcL. 05/15/2021 8:08 AM [facility] NRBC PER 100 WBC 0.0 0.0 - 0.0 % 05/15/2021 8:08 AM [facility] ABSOLUTE NRBC 0.00 10 (3) mcL. 05/15/2021 8:08 AM [facility] Blood Venipuncture / Unknown 05/15/2021 6:20 AM CDT 05/15/2021 7:11 AM CDT us Justin Carlson MD HEMATOLOGY ORDERABLES Final R esult [facility] [address] [place] [address] * (ABNORMAL) BASIC METABOLIC PANEL W/ CALCIUM TOTAL (05/15/2021 6:20 AM CDT) SODIUM 140 133 - 145 mmol/L 05/15/2021 8:22 AM [facility] POTASSIUM 4.0 3.5 - 5.1 mmol/L 05/15/2021 8:22 AM [facility] CHLORIDE 105 96 - 108 mmol/L 05/15/2021 8:22 AM [facility] CO2, VENOUS 29 21 - 32 mmol/L 05/15/2021 8:22 AM [facility] ANION GAP 10.0 10.0 - 20.0 mmol/L 05/15/2021 8:22 AM [facility] GLUCOSE 91 83 - 110 mg/dL 05/15/2021 8:22 AM [facility] BUN 11 6 - 19 mg/dL 05/15/2021 8:22 AM [facility] CREATININE, BLOOD 0.60 0.40 - 1.10 mg/dL 05/15/2021 8:22 AM [facility] BUN/CREATININE RATIO 18 12 - 20 ratio 05/15/2021 8:22 AM [facility] CALCIUM 8.2(L) 8.8 - 10.0 mg/dL 05/15/2021 8:22 AM [facility] Comment:Calcium low. Correct ed calcium to follow. Blood Venipuncture / Unknown 05/15/2021 6:20 AM CDT 05/15/2021 7:11 AM CDT us Justin Carlson MD CHEMISTRY ORDERABLES Final Re sult [facility] [address] [place] [id number] documented in this encounter Visit Diagnoses Diagnosis Fracture of unspecified part of neck of right femur, initial encounter for closed fracture documented in this encounter Additional Health Concerns Assessment Noted Time PHQ-9 Depression Total Score: 0 05/08/20 21 1:15 AM CDT documented as of this encounter Care Teams Senior Foreman Relationship Specialty Start Date End Date Susie Jauregui MD [address] [place] [address] PCP - General Geriatric Medicine 08/26/18 documented as of this encounter
--- OUTSIDE RECORDS SUMMARY | 2025-09-18 10:11 | XMS_ITS | Encounter Summary ---
Author Organization [facility] Address [address] [place] [address] Phone Care Team Providers Care Developmental Mathematics Instructor Name Role Phone Susie Jauregui MD Primary Care Provider Encounter Details Date Type Department Care Team (Late st Contact Info) Description 06/18/2021 Lab Requisition [facility] Laboratory Services [address] [place] [address] Abelino David MD [address] [place], [place] [id number] Essential (primary) hypertension; Urinary tract infection, site [...] 3.90 - 11.00 10(3)/mcL 06/18/2021 9:09 AM [facility] RBC 3.32(L) 3.80 - 5.20 10(6)/mcL 06/18/2021 9:09 AM [facility] HEMOGLOBIN (HGB) 10.0(L) 11.7 - 16.0 g/dL 06/18/2021 9:09 AM [facility] HEMATOCRIT (HCT) 32.9(L) 34.9 - 46.9 % 06/18/2021 9:09 AM [facility] MCV 99.1 80.0 - 100.0 fL 06/18/2021 9:09 AM [facility] MCH 30.1 26.5 - 33.9 pg 06/18/2021 9:09 AM [facility] MCHC 30.4(L) 31.5 - 36.0 g/dL 06/18/2021 9:09 AM [facility] PLATELET COUNT 311 140 - 445 10(3)/mcL 06/18/2021 9:09 AM [facility] MPV 9.5 >=0.0 fL 06/18/2021 9:09 AM [facility] RDW 14.2 12.0 - 15.0 % 06/18/2021 9:09 AM [facility] NEUTROPHILS 52.7 % 06/18/2021 9:09 AM [facility] LYMPHOCYTES 34.1 % 06/18/2021 9:09 AM [facility] MONOCYTES 10.8 % 06/18/2021 9:09 AM [facility] EOSINOPHILS 1.3 % 06/18/2021 9:09 AM [facility] IMMATURE GRANULOCYTE % 0.2 % 06/18/2021 9:09 AM [facility] BASOPHILS 0.9 % 06/18/2021 9:09 AM [facility] ABSOLUTE NEUTROPHILS 2.35 1.40 - 7.30 10(3)/[facility] 06/18/2021 9:09 AM [facility] ABSOLUTE LYMPHOCYTES 1.52 1.30 - 2.90 10(3)/[facility] 06/18/2021 9:09 AM [facility] ABSOLUTE MONOCYTES 0.48 0.10 - 0.80 10(3)/[facility] 06/18/2021 9:09 AM [facility] ABSOLUTE EOSINOPHIL 0.06 0.00 - 0.30 10(3)/[facility] 06/18/2021 9:09 AM [facility] ABSOLUTE BASOPHILS 0.04 0.00 - 0.10 10(3)/[facility] 06/18/2021 9:09 AM [facility] ABSOLUTE IMMATURE GRANULOCYTE 0.01 0.00 - 0.10 10 (3) mcL. 06/18/2021 9:09 AM [facility] NRBC PER 100 WBC 0.0 0.0 - 0.0 % 06/18/2021 9:09 AM [facility] ABSOLUTE NRBC 0.00 10 (3) mcL. 06/18/2021 9:09 AM [facility] Blood Venipuncture / Unknown 06/18/2021 6:41 AM CDT 06/18/2021 8:04 AM CDT us Abelino David MD HEMATOLOGY ORDERABLES Final Re sult [facility] [address] [place] [address] * (ABNORMAL) CMP (COMPREHENSIVE METABOLIC PANEL) (06/18/2021 6:41 AM CDT) SODIUM 142 133 - 145 mmol/L 06/18/2021 9:25 AM [facility] POTASSIUM 4.1 3.5 - 5.1 mmol/L 06/18/2021 9:25 AM [facility] CHLORIDE 106 96 - 108 mmol/L 06/18/2021 9:25 AM [facility] CO2, VENOUS 30 21 - 32 mmol/L 06/18/2021 9:25 AM [facility] ANION GAP 10.1 10.0 - 20.0 mmol/L 06/18/2021 9:25 AM [facility] GLUCOSE 97 83 - 110 mg/dL 06/18/2021 9:25 AM [facility] BUN 11 6 - 19 mg/dL 06/18/2021 9:25 AM [facility] CREATININE, BLOOD 0.70 0.40 - 1.10 mg/dL 06/18/2021 9:25 AM [facility] BUN/CREATININE RATIO 16 12 - 20 ratio 06/18/2021 9:25 AM [facility] TOTAL PROTEIN 6.0 6.0 - 8.2 g/dL 06/18/2021 9:25 AM [facility] ALBUMIN 3.3(L) 3.4 - 4.8 g/dL 06/18/2021 9:25 AM [facility] CALCIUM 8.8 8.8 - 10.0 mg/dL 06/18/2021 9:25 AM [facility] T BILI 0.3 0.0 - 1.0 mg/dL 06/18/2021 9:25 AM [facility] SGOT (AST) 16 0 - 37 U/L 06/18/2021 9:25 AM [facility] SGPT (ALT) 22 12 - 45 U/L 06/18/2021 9:25 AM [facility] ALKALINE PHOSPHATASE 64 39 - 117 U/L 06/18/2021 9:25 AM [facility] GFR, EST. NONAFRICAN >60 06/18/2021 9:25 AM [facility] Comment: Reference interval for MDRD GFR: GFR >=60: Satisfactory kidney function GFR <60: Chronic kidney disease GFR <15: Kidney failure Estimated GFR may be less reliable in patients >70yr, women, patients with serious comorbid conditions, or patients with extremes of body size, muscle mass, or nutritional status. Revised 02/16/08 (National Kidney Disease Education Program) GFR, EST. >60 >=60 021 9:25 AM [facility] Comment: Reference interval for MDRD GFR: [...] 6:41 AM CDT 06/18/2021 8:[address] [facility] - 06/18/2021 9:25 AM [facility] Venipuncture should occur prior to sulfasalazine and/or sulfapyridine administration due to the potential for falsely depressed results for ALT and AST. Glucose can be falsely depressed after administration of sulfasalazine, and falsely elevated with administration of sulfapyridine. us Abelino David MD CHEMISTRY ORDERABLES Final Res ult [facility] [address] [place] [address] * CRP, DMH (06/18/2021 6:41 AM CDT) C-REACITVE PROTEIN <2.9 0.0 - 5.0 mg/L 06/18/2021 9:25 AM [facility] Blood Venipuncture / Unknown 06/18/2021 6:41 AM CDT 06/18/2021 8:04 AM CDT us Abelino David MD CHEMISTRY ORDERABLES Final Res ult [facility] [address] [place] [address] documented in this encounter Visit Diagnoses Diagnosis Essential (primary) hypertension Unspecified essential hypertension Urinary tract infection, site not specified documented in this encounter Additional Health Concerns Assessment Noted Time PHQ-9 Depression Total Score: 0 06/05/20 21 9:00 AM CDT documented as of this encounter Care Teams Developmental Mathematics Instructor Relationship Specialty Start Date End Date Susie Jauregui MD [address] [place] [address] PCP - General Geriatric Medicine 08/26/18 documented as of this encounter
--- OUTSIDE RECORDS SUMMARY | 2025-09-18 10:11 | XMS_ITS | Clinical Summary ---
Author Organization [facility] Address [address] [place] [address] Phone Care Team Providers Care Manufacturing Business Analyst Name Role Phone Susie Jauregui MD Primary [...] Comments Blood Pressure 169/74 11/21/2022 12:50 PM REMARKETING MANAGER Pulse 73 11/21/2022 12:50 PM REMARKETING MANAGER Temperature 36.3 C (97.3 F) 11/21/2022 12:50 PM REMARKETING MANAGER Respiratory Rate 16 11/21/2022 12:50 PM REMARKETING MANAGER Oxygen Saturation 93% 11/21/2022 12:50 PM REMARKETING MANAGER Inhaled Oxygen Concentration - - Weight 61.2 kg (135 lb) 11/21/2022 9:00 AM REMARKETING MANAGER Height 157.5 cm (5' 2) 11/21/2022 9:00 AM REMARKETING MANAGER Body Mass Index 24.69 11/21/2022 9:00 AM REMARKETING MANAGER Plan of Treatment Health Maintenance Due Date [...] this topic Medical Devices Implanted Type Area Inside Parts Sales Device Identifier Shelf Expiration Date Model / Serial / Lot Cement Biomet - [id number] Implanted:Qty: 1 on 05/08/2021 by Iam hWite MD at [facility] IMPLANT Right: Hip [employer] 07/23/2025 [id number] / / [id number] Cement Biomet - [id number] Implanted:Qty: 1 on 05/08/2021 by Iam White MD at [facility] IMPLANT Right: Hip [employer] 08/22/2025 [id number] / / [id number] [employer] Univ Distal Spacer [id number] - [id number] Implanted:Qty: 1 on 05/08/2021 by Iam White MD at [facility] IMPLANT Right: Hip [employer] 04/17/2026 [id number] / / [id number] [facility] Cement Restrict [id number] - [id number] Implanted:Qty: 1 on 05/08/2021 by Iam White MD at [facility] IMPLANT Right: Hip [facility]IAN [facility] 01/11/2026 [id number] / / [id number] Uhr Bipolar [id number] - [id number] Implanted:Qty: 1 on 05/08/2021 by Iam White MD at [facility] IMPLANT Right: Hip [facility]IAN [facility] 01/28/2026 [id number] / / [id number] 1.8mm Threaded Im Nail Implanted:Qty: 1 on 11/21/2022 by Clarence Cadet DO at [facility] IMPLANT Right: Hand [employer] IMN1.8-35T / / UNKNOWN 1.8mm Threaded Im Nail Implanted:Qty: 1 on 11/21/2022 by Clarence Cadet DO at [facility] IMPLANT Right: Hand [employer] IMN1.8-30T / / UNKNOWN 2.1mm Threaded Im Nail Implanted:Qty: 1 on 11/21/2022 by Clarence Cadet DO at [facility] IMPLANT Right: Hand [employer] IMN2.1-40T / / UNKNOWN Accolade C 127 Degree Cemented Hip Stem Implanted:Qty: 1 on 05/08/2021 by Iam White MD at [facility] Right: Hip 10/21/2023 [id number] / / [id number] [place] L[employer] V40 Femoral Head Implanted:Qty: 1 on 05/08/2021 by Iam White MD at [facility] Right: Hip 03/11/2026 [id number] / / [id number] Explanted Type Area Inside Parts Sales Device Identifier Shelf Expiration Date Model / Serial / Lot Cristopher Arnold Threaded - [id number] Explanted:Qty: 1 on 05/08/2021 by Iam White MD at [facility] IMPLANT Right: Hip [employer] [id number] / / UNK 0.9mm K-Wire Explanted:Qty: 2 on 11/21/2022 at [facility] IMPLANT Right: Hand [employer] WIRE-0.9/120 / / UNKNOWN Insurance MEDICARE [employer] GENERIC Care Teams Manufacturing Business Analyst Relationship Specialty Start Date End Date Susie Jauregui MD [address] [place] [address] PCP - General Geriatric Medicine 08/26/18
[2025-09-18 10:17] LABS: Hematocrit 32.5 % (37.0-47.0); Hemoglobin 10.6 g/dL (12.0-15.0); Immature Granulocyte Percent A 0.4 % (0-0.5); Lymphocytes Absolute Auto 1.31 K/mm3 (0.9-3.2); Mean Corpuscular HGB Conc 32.6 g/dl (32-36); Mean Corpuscular Hemoglobin 34.4 pg (26-34); Mean Corpuscular Volume 105.5 fl (80-100); Nucleated Red Blood Cells Absolute Auto 0.000 K/mm3 (0.0-0.012); Nucleated Red Blood Cells Perc 0.0 % (0.0-0.2); Platelet Count Result 185 k/mm3 (150-375); Red Blood Count 3.08 M/mm3 (4.2-5.4); White Blood Count 5.4 K/mm3 (4.5-10.0)
[2025-09-18 10:29] LABS: Alanine Aminotransferase 17 U/L (6-35); Albumin Level 4.5 g/dL (3.5-5.1); Alkaline Phosphatase 71 U/L (38-126); Anion Gap 8 mmol/L (4-12); Aspartate Amino Transferase 30 U/L (14-36); Bilirubin,Total 0.5 mg/dL (0.2-1.3); Blood Urea Nitrogen 25 mg/dL (7-17); Calcium 9.1 mg/dL (8.4-10.2); Carbon Dioxide 28 mmol/L (22-30); Chloride 97 mmol/L (98-107); Estimated Glomerular Filt Rate 51; Glucose 94 mg/dL (65-110); Potassium 4.2 mmol/L (3.4-5.0); Sodium 133 mmol/L (137-145); Total Protein 7.2 g/dL (6.3-8.2)
[2025-09-18 10:34] LABS: INR 1.0; Prothrombin Time 13.1 Seconds (11.1-14.7)
[2025-09-18 10:35] LABS: Partial Thromboplastin Time 29.9 Seconds (22.3-36.8)
[2025-09-18 10:40] LABS: Troponin I < 0.012 ng/mL (0.000-0.034)
[2025-09-18 10:42] LABS: Hypochromasia 1+; Macrocytosis Occasional (NORMAL); Schistocytes None Seen
== END 2025-09-18 11:03 | disposition short-term general hospital (02) ==
PROVIDERS: Emergency Provider Nurse Practitioner Adult Health
DX: S06.5X0A Traumatic subdural hemorrhage without loss of consciousness, initial encounter (principal); I11.0 Hypertensive heart disease with heart failure; I50.9 Heart failure, unspecified; E78.5 Hyperlipidemia, unspecified; Z87.01 Personal history of pneumonia (recurrent); Z77.22 Contact with and (suspected) exposure to environmental tobacco smoke (acute) (chronic); W18.30XA Fall on same level, unspecified, initial encounter
CPT/HCPCS: 36415; 70450; 71045; 72125; 80053; 84484; 85025; 85610; 85730; 93005; 99285